=== PATIENT | female | born 1940 | race Caucasian/White ===

== ENCOUNTER 2018-05-03 14:34 | Inpatient (IN) ==
[2018-05-03] MEDS ORDERED: Sod Chloride 0.9% Inj 1,000 ML IV.SIG SCH (15:15)
--- NOTE | 2018-05-03 15:35 | ED ---
HPI General Chief Complaint: Altered Mental Status Stated Complaint: evaluate for confusion,mental status Time Seen by Provider: 05/03/18 15:02 Source: RN notes reviewed Mode of arrival: other (ambulance) Limitations: altered mental status History of Present Illness MD complaint: Reports altered mental status Onset (ago): unknown Severity: mild Consistency of symptoms: unknown Context: Reports other (dementia) Associated symptoms: Reports denies other symptoms Related Data Home Medications Medication Instructions Recorded Confirmed ascorbic acid (vitamin C) [Vitamin 500 mg PO DAILY 05/03/18 05/03/18 C] cholecalciferol (vitamin D3) 1,000 unit PO DAILY 05/03/18 05/03/18 [Vitamin D3] levothyroxine 25 mcg PO DAILY 05/03/18 05/03/18 lisinopril 10 mg PO HS 05/03/18 05/03/18 lorazepam [Ativan] 1 mg PO TID 05/03/18 05/03/18 omeprazole 20 mg PO QAM 05/03/18 05/03/18 simvastatin [Zocor] 20 mg PO QPM 05/03/18 05/03/18 Allergies Allergy/AdvReac Type Severity Reaction Status Date / Time No Known Allergies Allergy Verified 05/03/18 14:44 Review of Systems ROS Unobtainable ROS Unobtainable: unobtainable due to mental status PMFSH Medical History Medical History Anxiety (Acute) Dementia (Acute) Depression (Acute) GERD (gastroesophageal reflux disease) (Acute) Hyperlipidemia (Acute) Hypertension (Acute) Parkinson disease (Acute) Syncope (Acute) History of open sigmoidectomy (Acute) Surgical History Surgical History S/P colostomy takedown (Acute) Social History Social History Substance History: No History of Abuse Smoking Status: Unknown if ever smoked How Often Do You Have a Drink Containing Alcohol: Never Recent Travel in [facility] within the Last 8 Weeks: No Recent Out of Country Travel within the Last 8 Weeks: No Immunization History Tetanus Immunization: Unsure Exam Const General: cooperative, healthy appearing, well developed and other (crying) Orientation: alert and awake HENMT Head: normal to inspection, normocephalic and atraumatic Mouth: moist mucous membranes Eyes Alignment and Position: alignment normal and position abnormal Conjunctivae: conjunctivae normal Sclera: sclerae normal EOM: EOM intact bilaterally Neck Neck: normal visual inspection and full ROM Chest Chest: normal inspection of the chest Resp Effort & Inspection: normal respiratory effort and able to speak in complete sentences Auscultation: clear to auscultation bilaterally Cardio Rate: regular rate Rhythm: regular rhythm GI Inspection: normal to inspection Palpation: soft Back/Spine/Pelvis Cervical Spine: cervical ROM normal Thoracic/Lumbar Spine: thoraco-lumbar ROM normal Skin General: no rashes or lesions noted, turgor normal and dry skin Neuro General: alert, awake, moves all extremities and CN's II-XI intact bilaterally Extrem General: normal to inspection and full ROM Psych Appearance: grossly normal Mental Status: mental status grossly normal Speech and Movement: speech and movement normal Mood: congruent mood Affect: anxious affect Attitude: cooperative Course Initial Documented Vital Signs Temperature 98.9 F 05/03/18 14:38 Pulse Rate 97 H 05/03/18 14:38 Respiratory Rate 18 05/03/18 14:38 Blood Pressure 181/79 H 05/03/18 14:38 Pulse Oximetry 94 L 05/03/18 14:38 Last Documented Vital Signs Temperature 98.9 F 05/03/18 14:38 Pulse Rate 84 05/03/18 14:43 Respiratory Rate 20 05/03/18 14:43 Blood Pressure 177/82 H 05/03/18 14:43 Pulse Oximetry 96 05/03/18 14:43 Medical Decision Making MDM Narrative Medical decision making narrative: Patient with a history of dementia who presents to us for altered mental status. Triage note indicates that her caregivers are concerned about possible urinary tract infection. I will start by checking a urinalysis. She will be given a liter of fluid while awaiting the results of the urinalysis. 5:30 PM The patient has become very angry and is trying to leave. I have ordered Ativan , 1 mg IV. Unfortunately, her urinalysis does not show infection. I have subsequently ordered a more thorough workup. 8:40 PM The patient's medical workup is negative. She required an additional dose of Ativan IV along with Haldol 5 mg IM. The patient has paperwork with her from her assisted living facility. The paperwork reports that the patient has become increasingly confused and aggressive. She is no longer suitable for their facility. She was sent here for further evaluation, admission to the hospital and placement at a higher level of care. As she is medically clear, she is suitable for admission to psychiatry. I have placed an order for a psych screen. Medical Screen Exam Complete: Yes Emergency Medical Condition: Yes Differential Diagnosis Differential Diagnosis: Differential diagnosis of altered mental status includes but is not limited to infection, electrolyte abnormality, neurological event, intoxication, encephalitis, meningitis Medical Records Medical records reviewed: Yes I reviewed the patient's medical records. Lab Data Lab results reviewed: Yes I reviewed the patient's lab results. Result diagrams: 05/03/18 17:10 05/03/18 17:10 Lab Results 05/03/18 05/03/18 05/03/18 Range/Units 14:59 16:10 17:10 WBC 9.4 (4.0-11.0) th/mm3 RBC 4.04 (4.00-5.30) mil/mm3 Hgb 13.3 (11.6-15.3) gm/dL Hct 37.9 (35.0-46.0) % MCV 93.6 (80.0-100.0) fL MCH 32.9 (27.0-34.0) pg MCHC 35.1 (32.0-36.0) % RDW 13.5 (11.6-17.2) % Plt Count 176 (150-450) th/mm3 MPV 8.8 (7.0-11.0) fL Neut % (Auto) 71.6 H (16.0-70.0) % Lymph % (Auto) 16.9 (9.0-44.0) % Runnels % (Auto) 8.6 H (0.0-8.0) % Eos % (Auto) 1.9 (0.0-4.0) % Baso % (Auto) 1.0 (0.0-2.0) % Neut # (Auto) 6.7 (1.8-7.7) th/mm3 Lymph # (Auto) 1.6 (1.0-4.8) th/mm3 Runnels # (Auto) 0.8 (0.0-0.9) th/mm3 Eos # (Auto) 0.2 (0.0-0.4) th/mm3 Baso # (Auto) 0.1 (0.0-0.2) th/mm3 WBC Differential . Differential Comment Auto diff final Sodium (136-145) meq/L Potassium (3.5-5.1) meq/L Chloride (98-107) meq/L Carbon Dioxide (21.0-32.0) meq/L Anion Gap (5-15) meq/L BUN (7-18) mg/dL Creatinine (0.50-1.00) mg/dL Estimated GFR (>89) mL/min POC Glucose 124 H (68-110) mg/dl Random Glucose (74-106) mg/dL Calcium (8.5-10.1) mg/dL Magnesium (1.5-2.5) mg/dL Total Bilirubin (0.2-1.0) mg/dL AST (15-37) U/L ALT (10-53) U/L Alkaline Phosphatase (45-117) U/L Troponin I (0.02-0.05) ng/mL Total Protein (6.4-8.2) g/dL Albumin (3.4-5.0) g/dL Urine Color Eva (Yellw/Straw) Urine Clarity Clear (Clear) Urine pH 6.0 (5.0-8.5) Ur Specific [place] 1.019 (1.002-1.035) Urine Protein Negative (Neg-Trace) mg/dL Urine Glucose (UA) Negative (Negative) mg/dL Urine Ketones Trace H (Negative) mg/dL Urine Occult Blood Negative (Negative) Urine Nitrate Negative (Negative) Urine Bilirubin Negative (Negative) Urine Urobilinogen Less than 2 (Less than 2) mg/dL Ur Leukocyte Esterase Negative (Negative) Urine RBC 7 H (0-3) /hpf Urine WBC 2 (0-5) /hpf Ur Squamous Epith Cells <1 (0-5) /hpf Urine Mucus Few H (Occasional) /lpf Micro UA Comment Cath-culture not ind Ur Microscopic Review Not Reportable Urine Culture Comments Cath-cult not ind 05/03/18 Range/Units 17:10 WBC (4.0-11.0) th/mm3 RBC (4.00-5.30) mil/mm3 Hgb (11.6-15.3) gm/dL Hct (35.0-46.0) % MCV (80.0-100.0) fL MCH (27.0-34.0) pg MCHC (32.0-36.0) % RDW (11.6-17.2) % Plt Count (150-450) th/mm3 MPV (7.0-11.0) fL Neut % (Auto) (16.0-70.0) % Lymph % (Auto) (9.0-44.0) % Runnels % (Auto) (0.0-8.0) % Eos % (Auto) (0.0-4.0) % Baso % (Auto) (0.0-2.0) % Neut # (Auto) (1.8-7.7) th/mm3 Lymph # (Auto) (1.0-4.8) th/mm3 Runnels # (Auto) (0.0-0.9) th/mm3 Eos # (Auto) (0.0-0.4) th/mm3 Baso # (Auto) (0.0-0.2) th/mm3 WBC Differential Differential Comment Sodium 142 (136-145) meq/L Potassium 4.1 (3.5-5.1) meq/L Chloride 106 (98-107) meq/L Carbon Dioxide 29.3 (21.0-32.0) meq/L Anion Gap 7 (5-15) meq/L BUN 20 H (7-18) mg/dL Creatinine 1.07 H (0.50-1.00) mg/dL Estimated GFR 50 L (>89) mL/min POC Glucose (68-110) mg/dl Random Glucose 80 (74-106) mg/dL Calcium 9.2 (8.5-10.1) mg/dL Magnesium 2.1 (1.5-2.5) mg/dL Total Bilirubin 0.5 (0.2-1.0) mg/dL AST 20 (15-37) U/L ALT 9 L (10-53) U/L Alkaline Phosphatase 117 (45-117) U/L Troponin I Less than 0.02 L (0.02-0.05) ng/mL Total Protein 7.2 (6.4-8.2) g/dL Albumin 3.6 (3.4-5.0) g/dL Urine Color (Yellw/Straw) Urine Clarity (Clear) Urine pH (5.0-8.5) Ur Specific [place] (1.002-1.035) Urine Protein (Neg-Trace) mg/dL Urine Glucose (UA) (Negative) mg/dL Urine Ketones (Negative) mg/dL Urine Occult Blood (Negative) Urine Nitrate (Negative) Urine Bilirubin (Negative) Urine Urobilinogen (Less than 2) mg/dL Ur Leukocyte Esterase (Negative) Urine RBC (0-3) /hpf Urine WBC (0-5) /hpf Ur Squamous Epith Cells (0-5) /hpf Urine Mucus (Occasional) /lpf Micro UA Comment Ur Microscopic Review Urine Culture Comments Imaging Data Radiologist's impression: Head CT 05/03/18 17:37 CONCLUSION: 1. Negative noncontrast head CT. . ECG Data EKG Prior to Arrival: No Attestation: I personally reviewed and interpreted this ECG as follows: (EKG shows a sinus rhythm with a rate of 67. No STT wave changes.) Discharge Plan Discharge Disposition Patient Disposition: 30 Still Patient Discharge Details Diagnosis: Dementia with behavioral disturbance Physicians Team ED Provider: Estefani Cunningham Primary Care Provider: Nola Hernández Rxs /Orders / Referrals /Forms Prescriptions: No Action simvastatin [Zocor] 40 mg Tablet 20 mg PO QPM RF: 0 levothyroxine 25 mcg Tablet 25 mcg PO DAILY RF: 0 ascorbic acid (vitamin C) [Vitamin C] 500 mg Tablet 500 mg PO DAILY RF: 0 lisinopril 10 mg Tablet 10 mg PO HS RF: 0 omeprazole 20 mg Capsule,Delayed Release(Dr/Ec) 20 mg PO QAM RF: 0 lorazepam [Ativan] 1 mg Tablet 1 mg PO TID RF: 0 cholecalciferol (vitamin D3) [Vitamin D3] 1,000 unit Tablet 1,000 unit PO DAILY RF: 0 Status ED Status: Medically Cleared
[2018-05-03 17:05] LABS: Bilirubin,Urine Negative (Negative); Clarity,Urine Clear (Clear); Color,Urine Amber (Yellw/Straw); Glucose,Urine (UA) Negative (Negative); Leukocyte Esterase,Urine Negative (Negative); Mucus,Urine Few /lpf (Occasional); Nitrite,Urine Negative (Negative); Specific Gravity,Urine 1.019 (1.002-1.035); Squamous Epithelial Cell,Urine <1 /hpf (0-5)
[2018-05-03 18:06] LABS: Baso # (Auto) 0.1 th/mm3 (0.0-0.2); Eos # (Auto) 0.2 th/mm3 (0.0-0.4); Eos % (Auto) 1.9 % (0.0-4.0); Hematocrit 37.9 % (35.0-46.0); Hemoglobin 13.3 gm/dL (11.6-15.3); Lymph # (Auto) 1.6 th/mm3 (1.0-4.8); Lymph % (Auto) 16.9 % (9.0-44.0); Mean Corpuscular HGB Conc 35.1 % (32.0-36.0); Mean Corpuscular Hemoglobin 32.9 pg (27.0-34.0); Mean Corpuscular Volume 93.6 fL (80.0-100.0); Mean Platelet Volume 8.8 fL (7.0-11.0); Mono # (Auto) 0.8 th/mm3 (0.0-0.9); Mono % (Auto) 8.6 % (0.0-8.0); Neut # (Auto) 6.7 th/mm3 (1.8-7.7); Neut % (Auto) 71.6 % (16.0-70.0); Platelet Count 176 th/mm3 (150-450); Red Blood Count 4.04 mil/mm3 (4.00-5.30); Red Cell Distribution Width 13.5 % (11.6-17.2); White Blood Count 9.4 th/mm3 (4.0-11.0)
[2018-05-03 18:23] LABS: Anion Gap 7 meq/L (5-15)
[2018-05-03 18:26] LABS: Alanine Aminotransferase 9 U/L (10-53); Albumin 3.6 g/dL (3.4-5.0); Alkaline Phosphatase 117 U/L (45-117); Aspartate Aminotransferase 20 U/L (15-37); Blood Urea Nitrogen 20 mg/dL (7-18); Calcium 9.2 mg/dL (8.5-10.1); Carbon Dioxide 29.3 meq/L (21.0-32.0); Chloride 106 meq/L (98-107); Glomerular Filtration Rate 50 mL/min (>89); Glucose,Random 80 mg/dL (74-106); Magnesium 2.1 mg/dL (1.5-2.5); Sodium 142 meq/L (136-145); Total Protein 7.2 g/dL (6.4-8.2)
[2018-05-03 18:28] LABS: Potassium 4.1 meq/L (3.5-5.1)
[2018-05-03] MEDS ORDERED: Haloperidol Inj 5 MG/ML Ampul IM ONE (18:50)
--- NOTE | 2018-05-03 20:36 | CT ---
EXAM DATE: 05/03/2018 8:31 PM EDT AGE/SEX: 78 years / Female INDICATIONS: Altered mental status. CLINICAL DATA: This is the patient's initial encounter. Patient reports that signs and symptoms have been present for 1 day and indicates a pain score of Nonresponsive. MEDICAL/SURGICAL HISTORY: Dementia. Hypertension. Parkinson's disease. None. RADIATION DOSE: 56.35 CTDI (mGy) COMPARISON: No prior exams available for comparison. TECHNIQUE: CT of the head without contrast. Using automated exposure control and adjustment of the mA and/or kV according to patient size, radiation dose was kept as low as reasonably achievable to ob tain optimal diagnostic quality images. DICOM format image data is available electronically for revi ew and comparison. FINDINGS: Cerebrum: The ventricles are normal for age. No evidence of midline shift, mass lesion, hemorrhage or acute infarction. No extraaxial fluid collections are seen. Posterior Fossa: The cerebellum and brainstem are intact. The 4th ventricle is midline. The cerebe llopontine angle is unremarkable. Extracranial: The visualized portion of the orbits is intact. Skull: The calvaria is intact. No evidence of skull fracture. CONCLUSION: 1. Negative noncontrast head CT. . Electronically signed by: Sha Dawn MD 05/03/2018 8:35 PM EDT
[2018-05-03] MEDS ORDERED: Haloperidol Inj 5 MG/ML Ampul IM PRN (20:50)
[2018-05-04] MEDS ORDERED: Pantoprazole Sodium 20 MG DR Tablet PO SCH (09:00)
[2018-05-04] MEDS ORDERED: Lisinopril 10 MG Tablet PO SCH (09:00)
[2018-05-04] MEDS: Ascorbic Acid 500 MG Tablet PO SCH (10:19)
--- NOTE | 2018-05-04 12:43 | ED ---
HPI - Psych - General Source: family, RN notes reviewed, other Mode of arrival: other (ambulance) - History of Present Illness MD complaint: altered mental status Onset (ago): hour(s) Duration: constant History of same: Yes Relieving factors: none Context: significant life stressor Associated symptoms: confusion Treatments prior to arrival: physical restraints, chemical restraints - General Chief Complaint: Altered Mental Status Stated Complaint: evaluate for confusion,mental status Time Seen by Provider: 05/04/18 12:10 - History of Present Illness HPI Narrative: Patient is a 78-year-old , female with medical history of Parkinson's disease diagnosed 4 years ago, dementia with behaviors, depression, anxiety, who is sent for evaluation and possible admission as well as placement at a higher level of care from her [facility]. The paperwork reports that the patient has become increasingly confused and aggressive towards her , who is also a resident of the facility. The patient had a negative urinalysis and negative medical workup therefore she was medically cleared and a psychiatric evaluation has been ordered. The patient was somewhat agitated last night wanting to leave the hospital and was given Ativan 2 mg and Haldol 5 mg. Patient seen. She is awake with her eyes closed. She acknowledges me by opening her eyes when I call her name but then closes her eyes. She is nonverbal but does nod yes/no some of her answers. The patient is able to speak according to nurses report. The note from her primary care physician at [facility] dated April 28, 2018 is reviewed. It indicates that the patient was c taking Effexor 75 mg twice a day along with Ativan 0.5 mg 3 times a day. The Effexor was changed to Effexor 150 mg po q am. Telephone call to her sisterSonya at [phone]. States that the patient has one previous psychiatric admission in her fifties after her 21 year old daughter committed suicide. She has been agitated after her second returned to [facility] after a 3 month stay at a rehab facility. According to the sister, the patient told her that the has been antagonizing her and calling her " coockoo"., I attempted to engage patient again in evaluation at 1310. She is awake but refuses to answer any questions. I made another attempt at 1400. She ias awake but non verbal. She nods yes to feeling sad , but otherwise is non communicative. She stares at job specification writer and at times appears internally preoccupied. I have consulted Dr. Torres regarding case. We need to obtain further information in order to make a determination. At this time the patient would need to sign voluntary admission but we are unable to make that determination if she does not cooperate with evaluation. Telephone call to [facility] at [phone] ext [phone] to speak with nursing assistants teacher Monica. She tells me that the patient has been having episodes of outbursts followed by episodes of not speaking at all. They are concerned over her continued episodes of agitated behavior. The [facility] is willing to take her back if her behavior improves. (Radha Dixon) - Related Data Home Medications Medication Instructions Recorded Confirmed ascorbic acid (vitamin C) [Vitamin 500 mg PO DAILY 05/03/18 05/03/18 C] cholecalciferol (vitamin D3) 1,000 unit PO DAILY 05/03/18 05/03/18 [Vitamin D3] levothyroxine 25 mcg PO DAILY 05/03/18 05/03/18 lisinopril 10 mg PO HS 05/03/18 05/03/18 lorazepam [Ativan] 1 mg PO TID 05/03/18 05/03/18 omeprazole 20 mg PO QAM 05/03/18 05/03/18 simvastatin [Zocor] 20 mg PO QPM 05/03/18 05/03/18 Allergies Allergy/AdvReac Type Severity Reaction Status Date / Time No Known Allergies Allergy Verified 05/03/18 14:44 [facility] - History History Provided By: Patient - Medical History Medical History: Medical History (Last Updated 05/03/18 @ 15:38 by Estefani Cunningham) Anxiety Dementia Depression GERD (gastroesophageal reflux disease) Hyperlipidemia Hypertension Parkinson disease Syncope History of open sigmoidectomy - Surgical History Surgical History: Surgical History (Last Reviewed 05/03/18 @ 15:38 by Estefani Cunningham) S/P colostomy takedown - Tobacco History Smoking Status: Unknown if ever smoked - Alcohol History How Often Do You Have a Drink Containing Alcohol: Never - Substance Use History Substance History: No History of Abuse - Travel History Recent Travel in the [facility] Within the Last 8 Weeks: No Recent Travel Out of the Country Within the Last 8 Weeks: No - Immunization History Tetanus Immunization: Unsure Psychiatric History - Psychiatric History Psychiatric Treatment History: History of Psychiatric Treatment History of Inpatient Treatment: Yes Firearms in Home: No - Psychiatric History 1 previous admission when patient was in her 50s. (Radha Dixon) Physical Exam - General Limitations: altered mental status Mental Status Examination Appearance: Disheveled Consciousness: Alert, Asleep, Somnolent Orientation: Person Motor Activity: Other Speech: Other Language: Other (Nonverbal at this time) Attention and Concentration: Inadequate Memory: Impaired (Unable to formally test) Mood: Other (Unable to evaluate) Affect: Sad, Flat Thought Process & Associations: Other (Unable to evaluate) Thought Content: Other (Unable to evaluate) Hallucination Type: Other (Unable to evaluate) Delusion Type: Other Insight: Poor Judgment: Poor Initial Documented Vital Signs Temperature 98.9 F 05/03/18 14:38 Pulse Rate 97 H 05/03/18 14:38 Respiratory Rate 18 05/03/18 14:38 Blood Pressure 181/79 H 05/03/18 14:38 Pulse Oximetry 94 L 05/03/18 14:38 Last Documented Vital Signs Temperature 98.9 F 05/03/18 14:38 Pulse Rate 78 05/04/18 07:44 Respiratory Rate 18 05/04/18 07:44 Blood Pressure 176/89 H 05/04/18 07:44 Pulse Oximetry 98 05/04/18 07:44 MDM - Psych - Diagnosis (1) Dementia with behavioral disturbance Status: Acute (2) Depressive disorder Status: Acute - Lab Data Result diagrams: 05/03/18 17:10 05/03/18 17:10 - MDM Narrative Medical decision making narrative: I have discussed case with Dr. Fabio Torres. The patient will be admitted to inpatient psychiatry 2500 unit for further observation, evaluation, possible medication adjustment. HEPAS consult has been ordered. (Radha Dixon) - Lab Data Lab Results 05/03/18 05/03/18 05/03/18 Range/Units 14:59 16:10 17:10 WBC 9.4 (4.0-11.0) th/mm3 RBC 4.04 (4.00-5.30) mil/mm3 Hgb 13.3 (11.6-15.3) gm/dL Hct 37.9 (35.0-46.0) % MCV 93.6 (80.0-100.0) fL MCH 32.9 (27.0-34.0) pg MCHC 35.1 (32.0-36.0) % RDW 13.5 (11.6-17.2) % Plt Count 176 (150-450) th/mm3 MPV 8.8 (7.0-11.0) fL Neut % (Auto) 71.6 H (16.0-70.0) % Lymph % (Auto) 16.9 (9.0-44.0) % [place] % (Auto) 8.6 H (0.0-8.0) % Eos % (Auto) 1.9 (0.0-4.0) % Baso % (Auto) 1.0 (0.0-2.0) % Neut # (Auto) 6.7 (1.8-7.7) th/mm3 Lymph # (Auto) 1.6 (1.0-4.8) th/mm3 [place] # (Auto) 0.8 (0.0-0.9) th/mm3 Eos # (Auto) 0.2 (0.0-0.4) th/mm3 Baso # (Auto) 0.1 (0.0-0.2) th/mm3 WBC Differential . Differential Comment Auto diff final Sodium (136-145) meq/L Potassium (3.5-5.1) meq/L Chloride (98-107) meq/L Carbon Dioxide (21.0-32.0) meq/L Anion Gap (5-15) meq/L BUN (7-18) mg/dL Creatinine (0.50-1.00) mg/dL Estimated GFR (>89) mL/min POC Glucose 124 H (68-110) mg/dl Random Glucose (74-106) mg/dL Calcium (8.5-10.1) mg/dL Magnesium (1.5-2.5) mg/dL Total Bilirubin (0.2-1.0) mg/dL AST (15-37) U/L ALT (10-53) U/L Alkaline Phosphatase (45-117) U/L Troponin I (0.02-0.05) ng/mL Total Protein (6.4-8.2) g/dL Albumin (3.4-5.0) g/dL TSH (0.358-3.740) uIU/mL Urine Color Eva (Yellw/Straw) Urine Clarity Clear (Clear) Urine pH 6.0 (5.0-8.5) Ur Specific [place] 1.019 (1.002-1.035) Urine Protein Negative (Neg-Trace) mg/dL Urine Glucose (UA) Negative (Negative) mg/dL Urine Ketones Trace H (Negative) mg/dL Urine Occult Blood Negative (Negative) Urine Nitrate Negative (Negative) Urine Bilirubin Negative (Negative) Urine Urobilinogen Less than 2 (Less than 2) mg/dL Ur Leukocyte Esterase Negative (Negative) Urine RBC 7 H (0-3) /hpf Urine WBC 2 (0-5) /hpf Ur Squamous Epith Cells <1 (0-5) /hpf Urine Mucus Few H (Occasional) /lpf Micro UA Comment Cath-culture not ind Ur Microscopic Review Not Reportable Urine Culture Comments Cath-cult not ind 05/03/18 05/03/18 Range/Units 17:10 17:10 WBC (4.0-11.0) th/mm3 RBC (4.00-5.30) mil/mm3 Hgb (11.6-15.3) gm/dL Hct (35.0-46.0) % MCV (80.0-100.0) fL MCH (27.0-34.0) pg MCHC (32.0-36.0) % RDW (11.6-17.2) % Plt Count (150-450) th/mm3 MPV (7.0-11.0) fL Neut % (Auto) (16.0-70.0) % Lymph % (Auto) (9.0-44.0) % [place] % (Auto) (0.0-8.0) % Eos % (Auto) (0.0-4.0) % Baso % (Auto) (0.0-2.0) % Neut # (Auto) (1.8-7.7) th/mm3 Lymph # (Auto) (1.0-4.8) th/mm3 [place] # (Auto) (0.0-0.9) th/mm3 Eos # (Auto) (0.0-0.4) th/mm3 Baso # (Auto) (0.0-0.2) th/mm3 WBC Differential Differential Comment Sodium 142 (136-145) meq/L Potassium 4.1 (3.5-5.1) meq/L Chloride 106 (98-107) meq/L Carbon Dioxide 29.3 (21.0-32.0) meq/L Anion Gap 7 (5-15) meq/L BUN 20 H (7-18) mg/dL Creatinine 1.07 H (0.50-1.00) mg/dL Estimated GFR 50 L (>89) mL/min POC Glucose (68-110) mg/dl Random Glucose 80 (74-106) mg/dL Calcium 9.2 (8.5-10.1) mg/dL Magnesium 2.1 (1.5-2.5) mg/dL Total Bilirubin 0.5 (0.2-1.0) mg/dL AST 20 (15-37) U/L ALT 9 L (10-53) U/L Alkaline Phosphatase 117 (45-117) U/L Troponin I Less than 0.02 L (0.02-0.05) ng/mL Total Protein 7.2 (6.4-8.2) g/dL Albumin 3.6 (3.4-5.0) g/dL TSH 1.270 (0.358-3.740) uIU/mL Urine Color (Yellw/Straw) Urine Clarity (Clear) Urine pH (5.0-8.5) Ur Specific Brooks (1.002-1.035) Urine Protein (Neg-Trace) mg/dL Urine Glucose (UA) (Negative) mg/dL Urine Ketones (Negative) mg/dL Urine Occult Blood (Negative) Urine Nitrate (Negative) Urine Bilirubin (Negative) Urine Urobilinogen (Less than 2) mg/dL Ur Leukocyte Esterase (Negative) Urine RBC (0-3) /hpf Urine WBC (0-5) /hpf Ur Squamous Epith Cells (0-5) /hpf Urine Mucus (Occasional) /lpf Micro UA Comment Ur Microscopic Review Urine Culture Comments
[2018-05-04] MEDS ORDERED: Aluminum/Magnesium/Simethacone Susp 30 ML UDC PO PRN (15:13)
--- NOTE | 2018-05-04 16:25 | P.CON ---
History of Present Illness Reason for Consult: Medical management Primary Care Provider: Nola Hernández MD Chief Complaint: Medical management History of Present Illness: 78-year-old female with a past medical history of dementia with behavioral disturbances, Parkinson disease was brought from [facility] facility and admitted to psychiatry service secondary to increasing confusion and aggression toward others.[facility] was consulted for medical management. Patient is only alert to self and able to provide any history during my exam. BP elevated. . Review of Systems unobtainable due to mental condition, unobtainable due to mental status PMFSH - History History Provided By: Patient - Medical History Medical History: Medical History (Last Updated 05/03/18 @ 15:38 by Estefani Cunningham) Anxiety Dementia Depression GERD (gastroesophageal reflux disease) Hyperlipidemia Hypertension Parkinson disease Syncope History of open sigmoidectomy - Surgical History Surgical History: Surgical History (Last Reviewed 05/03/18 @ 15:38 by Estefani Cunningham) S/P colostomy takedown - Tobacco History Smoking Status: Unknown if ever smoked - Alcohol History How Often Do You Have a Drink Containing Alcohol: Never - Substance Use History Substance History: No History of Abuse - Travel History Recent Travel in the [place] Within the Last 8 Weeks: No Recent Travel Out of the Country Within the Last 8 Weeks: No - Immunization History Tetanus Immunization: Unsure Medications and Allergies Active Medications: Active Medications Al Hydrox/Mg Hydrox/Simethicone (Mag-Al Plus Susp Liq) 30 ml PO Q6H PRN PRN Reason: DYSPEPSIA Al Hydroxide/Mg Hydroxide (Milk Of Magnesia Liq) 30 ml PO Q12H PRN PRN Reason: Mild Constipation Ascorbic Acid (Vitamin C) 500 mg PO DAILY [facility] Last Admin: 05/04/18 10:19 Dose: Not Given Haloperidol Lactate (Haldol Inj) 5 mg IM Q6H PRN PRN Reason: AGITATION Lactulose (Lactulose Liq) 30 ml PO DAILY PRN PRN Reason: SEVERE CONSITIPATION Levothyroxine Sodium (Synthroid) 25 mcg PO DAILY@0600 [facility] Last Admin: 05/04/18 09:13 Dose: Not Given Levothyroxine Sodium (Synthroid) 25 mcg PO DAILY [facility] Lisinopril (Prinivil) 10 mg PO DAILY [facility] Lorazepam (Ativan Inj) 2 mg IM Q6H PRN PRN Reason: AGITATION Lorazepam (Ativan Inj) 0.5 mg IM Q12H PRN PRN Reason: MODERATE TO SEVERE ANXIETY Non-Formulary Medication (Simvastatin [Zocor]) 20 mg PO QPM [facility] Pantoprazole Sodium (Protonix) 20 mg PO DAILY [facility] Last Admin: 05/04/18 10:18 Dose: Not Given Sennosides (Senokot) 17.2 mg PO Q12H PRN PRN Reason: Moderate Constipation Vitamin D (Vitamin D3) 1,000 unit PO DAILY [facility] Last Admin: 05/04/18 10:19 Dose: Not Given Vitamin D (Vitamin D3) 1,000 unit PO DAILY [facility] Allergies Allergy/AdvReac Type Severity Reaction Status Date / Time No Known Allergies Allergy Verified 05/03/18 14:44 Home Medications Medication Instructions Recorded Confirmed Type ascorbic acid (vitamin C) [Vitamin 500 mg PO DAILY 05/03/18 05/03/18 History C] cholecalciferol (vitamin D3) 1,000 unit PO DAILY 05/03/18 05/03/18 History [Vitamin D3] levothyroxine 25 mcg PO DAILY 05/03/18 05/03/18 History lisinopril 10 mg PO HS 05/03/18 05/03/18 History lorazepam [Ativan] 1 mg PO TID 05/03/18 05/03/18 History omeprazole 20 mg PO QAM 05/03/18 05/03/18 History simvastatin [Zocor] 20 mg PO QPM 05/03/18 05/03/18 History Physical Exam Vital signs: Vital Signs 05/03/18 22:55 05/04/18 06:45 05/04/18 07:07 Pulse Rate 69 78 89 Respiratory Rate 16 18 18 Blood Pressure 165/71 H 189/87 H 190/87 H Pulse Oximetry 96 98 99 05/04/18 07:44 05/04/18 15:00 Pulse Rate 78 87 Respiratory Rate 18 18 Blood Pressure 176/89 H 197/87 H Pulse Oximetry 98 Intake & Output 05/03/18 05/04/18 05/04/18 18:59 06:59 18:59 Intake Total 1000 / 1000 Balance 1000 / 1000 Weight 66.678 kg Intake: IV 1000 / 1000 NS Inj 1,000 ML @ 1000 mls/hr 1000 / 1000 IV.SIG BOLUS [facility], [facility]1983 Rx#:[id number] Narrative: GENERAL: NAD SKIN: Warm and dry. HEAD: Atraumatic. Normocephalic. EYES: Pupils equal and round. No scleral icterus. No injection or drainage. ENT: No nasal bleeding or discharge. Mucous membranes pink and moist. NECK: Trachea midline. No JVD. CARDIOVASCULAR: Regular rate and rhythm. RESPIRATORY: No accessory muscle use. Clear to auscultation. Breath sounds equal bilaterally. GASTROINTESTINAL: Abdomen soft, non-tender, nondistended. Hepatic and splenic margins not palpable. MUSCULOSKELETAL: Extremities without clubbing, cyanosis, or edema. No obvious deformities. NEUROLOGICAL: Awake and alert. No obvious cranial nerve deficits. Motor grossly within normal limits. Five out of 5 muscle strength in the arms and legs. PSYCHIATRIC: inappropriate mood and affect; insight and judgment poor. Assessment and Plan - Plan 78-year-old female with Behavior disturbances Dementia Acute mood disorder Management per psychiatry Labile benign hypertension Resume lisinopril Start clonidine 0.2mg TTS q. 7D Other chronic medical conditions Continue with outpatient medications Thank you for this consultation
--- NOTE | 2018-05-04 16:35 | ECG ---
Date Performed: 05/03/2018 Time Performed: 20:45:03 PTAGE: 78 years EKG: Sinus rhythm NORMAL ECG PREVIOUS TRACING 09/11/13 @ 11.02 Since the previous tracing, no significant change noted DOCTOR: Rajesh Lockhart Interpretating Date/Time 05/04/2018 16:33:18
[2018-05-04] MEDS: Pantoprazole Sodium 20 MG DR Tablet PO SCH (17:14)
[2018-05-04] MEDS: Lisinopril 10 MG Tablet PO SCH (21:17)
[2018-05-05] MEDS: Lisinopril 10 MG Tablet PO SCH ×3 (01:27→22:38)
[2018-05-05] MEDS: Pantoprazole Sodium 20 MG DR Tablet PO SCH (08:28)
[2018-05-05] MEDS: Ascorbic Acid 500 MG Tablet PO SCH (08:29)
[2018-05-05 08:40] LABS: Carbon Dioxide 27.6 meq/L (21.0-32.0); Potassium 3.6 meq/L (3.5-5.1)
[2018-05-05 09:04] LABS: Chol/HDL Ratio 2.59 Ratio; HDL Cholesterol 60.5 mg/dL (40.0-60.0)
[2018-05-05 11:04] LABS: Hemoglobin A1c 4.9 % (4.3-6.0)
--- NOTE | 2018-05-05 11:11 | P.HPPSY ---
Provisional Diagnosis Admission Date: May 04, 2018 15:12 [place] I.: 1. Dementia with behavioral disturbance Neurodegenerative (Alzheimer type versus Parkinson's disease dementia) [place] II.: Deferred Competence Certification of Person's Competence To Provide Express and Informed Consent I have personally examined Daksha Barnes, a person being served at [facility] on, May 05, 2018 1111. Express and informed consent means consent voluntarily given in writing, by a competent person, after sufficient explanation and disclosure of the subject matter involved to enable the person to make a knowing and willful decision without any element of force, fraud, deceit, duress, or other form of constraint or coercion. This person is 18 years of age or older, is not now known to be incompetent to consent to treatment with a guardian advocate, and does not have a health care surrogate or proxy currently making medical treatment decisions. I have found this person to be one of the following: [] Competent to provide express and informed consent, as defined above, for voluntary admission to this facility and is competent to provide express and informed consent for treatment. He/she has the consistent capacity to make well reasoned, willful, and knowing decisions concerning his or her medical or mental health treatment. The person fully and consistently understands the purpose of the admission for examination/placement and is fully capable of personally exercising all rights assured [place] [X] Incompetent to provide express and informed consent to voluntary admission, and this is incompetent to provide express and informed consent to treatment. The person must be transferred to involuntary status and a petition for a guardian advocate filed with the Circuit Court. [] Refusing to provide express and informed consent to voluntary admission but is competent to provide express and informed consent for treatment. The person must be discharged or transferred to involuntary status. Form shall be completed within 24 hours of a person's arrival at the receiving facility and filed in the clinical record of each person: 1. Admitted on a voluntary basis 2. Permitted to provide express and informed consent to his/her own treatment 3. Allowed to transfer from involuntary to voluntary status 4. Prior to permitting a person to consent to his or her own treatment after having been previously found incompetent to consent to treatment. History of Present Illness Capacity: Lacks capacity Chief Complaint: Roesn Act History of Present Illness: Ms. Barnes is a 78 year-old female with a history of dementia who was brought to the ED from her facility for alleged aggressive behavior there. Patient was evaluated by psychiatric nurse practitioner in the ED and Rosen Acted. Reviewing the electronic medical record, I see no previous psychiatric contact within our system. Patient seen and examined with nurse. Chart reviewed. I note progress note from patient's PCP on the chart, which I have reviewed. Case discussed with nursing staff. No behavioral issues noted overnight. On my examination today, patient presents as calm and cooperative if somewhat confused. She is unable to complete the visual-spatial or naming components of the MOCA secondary to not having her eyeglasses (nurse is trying to locate these), but her score on the remainder of the exam was 6/22. She has no idea why she has been brought into the hospital. She does say that she has occasional "tiffs," by which she means verbal disputes, with the staff at her facility, she says. She does admit to feeling somewhat depressed for the last 2-3 weeks. She denies any suicidal ideation or passive thoughts of . No hypomanic or manic symptoms. She denies any audiovisual hallucinations. I can elicit no delusional material. She does report some subjective memory issues. Remainder of the psychiatric ROS is negative. No acute physical complaints. Past psychiatric history: Patient is likely an unreliable historian. She reports a history of depression and says that she has seen psychiatrists in the past. She says that her Effexor does help with her mood. She denies any history of psychiatric admissions. She denies any history of suicide attempts. ASSISTANT PRODUCER note indicates that the patient may have a history of previous psychiatric hospitalization following daughter's suicide. Family history: Patient reports that there is "some" family history of mental illness, she cannot say what. Chemical dependency history: The patient reports that she drinks a glass of white wine with dinner. She does report a history of heavier drinking. Social history: The patient reports that she has resided in her current assisted living setting for 3 weeks. She is with a son. She is high school educated. 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 She denies any history. Denies any legal history. Denies any particular yazdanism or spiritual beliefs. Denies any history of trauma. Given patient's degree of cognitive impairment and need for healthcare surrogate , I reached out to the patient's sister Sonya Kasper at [phone]. Ms. Kasper is willing to serve as HCS, noting she is patient's POA. We discuss the risks and benefits of ongoing psychiatric hospitalization in this patient, including the potential risks of fall, infection and other misadventure. Ms. Kasper supports hospitalization only if facility will not accept patient back. Counselor has checked, and facility insists on coming out Tuesday to assess whether patient may return, and so patient would presently need to remain in the hospital. I have obtained consent for psychotropic medications from Ms. Kasper. We discuss adding Seroquel to patient's Effexor for management of behaviors in setting of dementia. We also discuss discontinuing patient's Ativan as Ms. Kasper notes that this is disinhibiting for patient once initial sedating effects wear off. We review the R/B/A for medications with particular focus on the motor and metabolic side effects of Seroquel. We also discuss the FDA black box warning regarding increased risk of in demented elderly with antipsychotic therapy. Finally, we review patient's involuntary legal status. - Inpatient Certification I certify that the inpatient services were ordered in accordance with Medicare regulations governing the order. This includes certification that hospital inpatient services are reasonable and necessary and in the case of services not specified as inpatient-only under 42 CFR 419.22(n), that they are appropriately provided as inpatient services in accordance to with the 2-midnight benchmark under 43 CFR 412.3(e) I certify that inpatient psychiatric hospital services are medically necessary. Evaluation and treatment and/or diagnostic testing are expected to improve the patient's condition. The patient needs on a daily basis, active treatment furnished directly by or requiring the supervision of inpatient psychiatric facility personnel. Estimated Total Length of Stay (Days): 5 (3-5) Plans for Post Hospital Care: Other (Return to facility) Review of Systems All other systems reviewed negative except as stated in HPI (Limitation: Poor historian) PMFSH - History History Provided By: Patient - Medical History Medical History: Medical History (Last Updated 05/03/18 @ 15:38 by Estefani Cunningham) Anxiety Dementia Depression GERD (gastroesophageal reflux disease) Hyperlipidemia Hypertension Parkinson disease Syncope History of open sigmoidectomy - Surgical History Surgical History: Surgical History (Last Reviewed 05/03/18 @ 15:38 by Estefani Doan S/P colostomy takedown - Tobacco History Second Hand Smoke Exposure: No Smoking Status: Never smoker - Alcohol History How Often Do You Have a Drink Containing Alcohol: 4 or more times a week - Substance Use History Substance History: No History of Abuse - Travel History Recent Travel in the [place] Within the Last 8 Weeks: No Recent Travel Out of the Country Within the Last 8 Weeks: No - Immunization History Tetanus Immunization: Unsure Quality Measures - Patient Strengths Patient's strengths (minimum of 2): In a monitored setting. Verbally fluent. Medications and Allergies Active Medications: Active Medications Al Hydrox/Mg Hydrox/Simethicone (Mag-Al Plus Susp Liq) 30 ml PO Q6H PRN PRN Reason: DYSPEPSIA Al Hydroxide/Mg Hydroxide (Milk Of Magnesia Liq) 30 ml PO Q12H PRN PRN Reason: Mild Constipation Ascorbic Acid (Vitamin C) 500 mg PO DAILY [facility] Last Admin: 05/05/18 08:29 Dose: 500 mg Clonidine HCl (Catapress-Tts 0.2 Mg Patch.7d) 1 patch T-DERMAL Q7D [facility] Last Admin: 05/04/18 17:14 Dose: 1 patch Haloperidol Lactate (Haldol Inj) 5 mg IM Q6H PRN PRN Reason: AGITATION Lactulose (Lactulose Liq) 30 ml PO DAILY PRN PRN Reason: SEVERE CONSITIPATION Levothyroxine Sodium (Synthroid) 25 mcg PO DAILY [facility] Last Admin: 05/05/18 08:29 Dose: 25 mcg Lisinopril (Prinivil) 10 mg PO HS [facility] Last Admin: 05/05/18 01:27 Dose: 10 mg Lorazepam (Ativan Inj) 2 mg IM Q6H PRN PRN Reason: AGITATION Lorazepam (Ativan Inj) 0.5 mg IM Q12H PRN PRN Reason: MODERATE TO SEVERE ANXIETY Pantoprazole Sodium (Protonix) 20 mg PO DAILY [facility] Last Admin: 05/05/18 08:28 Dose: 20 mg Patch Removal (Remove Old Patch) 1 each T-DERMAL Q7D [facility] Pravastatin Sodium (Pravachol) 40 mg PO DAILY@1800 [facility] Last Admin: 05/04/18 21:17 Dose: Not Given Sennosides (Senokot) 17.2 mg PO Q12H PRN PRN Reason: Moderate Constipation Vitamin D (Vitamin D3) 1,000 unit PO DAILY [facility] Last Admin: 05/05/18 08:29 Dose: 1,000 unit Allergies Allergy/AdvReac Type Severity Reaction Status Date / Time No Known Allergies Allergy Verified 05/03/18 14:44 Home Medications Medication Instructions Recorded Confirmed Type ascorbic acid (vitamin C) [Vitamin 500 mg PO DAILY 05/03/18 05/03/18 History C] cholecalciferol (vitamin D3) 1,000 unit PO DAILY 05/03/18 05/03/18 History [Vitamin D3] levothyroxine 25 mcg PO DAILY 05/03/18 05/03/18 History lisinopril 10 mg PO HS 05/03/18 05/03/18 History lorazepam [Ativan] 1 mg PO TID 05/03/18 05/03/18 History omeprazole 20 mg PO QAM 05/03/18 05/03/18 History simvastatin [Zocor] 20 mg PO QPM 05/03/18 05/03/18 History Results - Labs CBC & Chem 7: 05/03/18 17:10 05/05/18 07:36 Labs: Laboratory Results - last 24 hr 05/05/18 07:36 Sodium 142 Potassium 3.6 Chloride 106 Carbon Dioxide 27.6 Anion Gap 8 BUN 13 Creatinine 0.93 Estimated GFR 58 L Random Glucose 96 Calcium 9.0 Triglycerides 118 Cholesterol 157 LDL Cholesterol, Calc 73 HDL Cholesterol 60.5 H Cholesterol/HDL Ratio 2.59 Vitamin B12 490 Labs reviewed. CBC unremarkable. CMP reveals mildly decreased GFR. Urinalysis plan. EKG read as normal sinus rhythm with a QTC of 389 ms, not prolonged. Impressions Head CT 05/03/18 17:37 CONCLUSION: 1. Negative noncontrast head CT. Exam Vital signs: Vital Signs 05/04/18 15:00 05/04/18 17:56 05/05/18 01:20 Temperature 98.2 F Pulse Rate 87 93 H 80 Respiratory Rate 18 18 20 Blood Pressure 197/87 H 150/70 H 170/84 H Pulse Oximetry 95 05/05/18 06:00 Temperature 98.3 F Pulse Rate 84 Respiratory Rate 18 Blood Pressure 123/65 Pulse Oximetry 94 L Intake & Output 05/04/18 05/05/18 05/05/18 18:59 06:59 18:59 Weight 78.1 kg Narrative: Physical exam completed by hospitalist cruise consultant. On my examination today, the patient appears to be in no acute physical distress. Somewhat bradykinetic. No dyskinesias noted. No other motor abnormalities noted. Labs and vital signs reviewed. Mental Status Examination Appearance: Disheveled Consciousness: Alert Orientation: Person, Date/Time (Knows the year and day of week) Motor Activity: Other (In Gwendolyn chair) Speech: Unremarkable Language: Adequate Fund of Knowledge: Inadequate Attention and Concentration: Other (Fair) Memory: Impaired Mood: Other (Somewhat depressed) Affect: Blunt Thought Process & Associations: Circumstantial Thought Content: Other (Some poverty of thought) Hallucination Type: None Delusion Type: None Suicidal Ideation: No Suicidal Plan: No Suicidal Intention: No Homicidal Ideation: No Homicidal Plan: No Homicidal Intention: No Insight: Poor Judgment: Poor Assessment and Plan - Assessment (1) Dementia with behavioral disturbance Code(s): F03.91 - Unspecified dementia with behavioral disturbance Status: Acute - Plan Plan: 78-year-old female with psychiatric history as detailed above who is presently admitted to the geropsychiatric unit under a Rosen act. On my examination today , the patient is calm and cooperative but fairly confused. Counselor has clarified allegations of aggressive behavior at facility, and I have reviewed these with the counselor. Facility will be out after the weekend to evaluate the patient. I will plan to retain the patient over the weekend for observation and medication adjustment. Admit inpatient. Involuntary status. I have completed first opinion. Consult for second opinion. Request healthcare surrogate and guardian advocate. Start Seroquel 25 mg twice daily for behavioral disturbance in the setting of dementia. Continue Effexor XR 150 mg total daily dose. Hospitalist input noted and appreciated. Resume patient's antiparkinsonian agents. Request physical therapy evaluation. Vitals every shift. Monitor for signs of GABAergic withdrawal. Counselor to see. Disposition planning. Estimated length of stay: 3-5 days. Justification for Continued Inpatient Stay: See above Discharge Planning: Pending psychiatric stabilization Request Healthcare Surrogate/Guardian Advocate?: Yes (1) Dementia with behavioral disturbance Qualifiers: Dementia type: unspecified type Qualified Code(s): F03.91 - Unspecified dementia with behavioral disturbance
--- NOTE | 2018-05-05 13:06 | P.PN ---
Subjective Interval history: Follow-up visit for hypertension. Patient seen and examined in the day room sitting up in geriatric chair appears to be in no acute distress. Spoke with nurse reports no acute events overnight or this morning, blood pressure has been stable. Patient is alert and oriented to self only. She denies any pain or discomfort, is asking to get out of the chair. Physical Exam Vital signs: Vital Signs 05/04/18 15:00 05/04/18 17:56 05/05/18 01:20 Temperature 98.2 F Pulse Rate 87 93 H 80 Respiratory Rate 18 18 20 Blood Pressure 197/87 H 150/70 H 170/84 H Pulse Oximetry 95 05/05/18 06:00 Temperature 98.3 F Pulse Rate 84 Respiratory Rate 18 Blood Pressure 123/65 Pulse Oximetry 94 L Intake & Output 05/04/18 05/05/18 05/05/18 18:59 06:59 18:59 Weight 78.1 kg Narrative: GENERAL: Well-developed, well-nourished elderly female in no acute distress. SKIN: Warm and dry. HEAD: Atraumatic. EYES: Pupils equal and round. No scleral icterus. No injection or drainage. ENT: No nasal bleeding or discharge. Mucous membranes pink and moist. NECK: Trachea midline. CARDIOVASCULAR: Regular rate and rhythm. RESPIRATORY: No accessory muscle use. Clear to auscultation. Breath sounds equal bilaterally. GASTROINTESTINAL: Abdomen soft, non-tender, nondistended. Positive bowel sounds MUSCULOSKELETAL: Extremities without clubbing, cyanosis, or edema. No obvious deformities. NEUROLOGICAL: Awake and alert. No obvious cranial nerve deficits. Motor grossly within normal limits. Clear speech. PSYCHIATRIC: inappropriate mood and affect; insight and judgment poor. Results - Labs CBC & Chem 7: 05/03/18 17:10 05/05/18 07:36 Laboratory Results - last 24 hr 05/05/18 05/05/18 07:36 07:36 Sodium 142 Potassium 3.6 Chloride 106 Carbon Dioxide 27.6 Anion Gap 8 BUN 13 Creatinine 0.93 Estimated GFR 58 L Random Glucose 96 Hemoglobin A1c 4.9 Calcium 9.0 Triglycerides 118 Cholesterol 157 LDL Cholesterol, Calc 73 HDL Cholesterol 60.5 H Cholesterol/HDL Ratio 2.59 Vitamin B12 490 Assessment and Plan - Plan 78-year-old female with Behavior disturbances Dementia Acute mood disorder Management per psychiatry Hypertension, improved -Patient currently on lisinopril, newly started clonidine patch -Recheck BMP stable -Blood pressures stable, continue current regimen. GERD, stable Hyperlipidemia, stable Thyroidism, stable -Continue statin, Synthroid and Protonix for chronic medical problems. [facility] will sign off, please reconsult if needed. Discussed Condition With: Patient and RN.
[2018-05-05] MEDS ORDERED: ENTACAPONE 200 MG PO SCH (18:00)
--- NOTE | 2018-05-05 19:07 | ECG ---
Date Performed: 05/05/2018 Time Performed: 11:15:46 PTAGE: 78 years EKG: Sinus rhythm Since the previous tracing, no significant change noted NORMAL ECG PREVIOUS TRACING : 05/03/2018 20.45 DOCTOR: Francis Zamora Interpretating Date/Time 05/05/2018 19:07:01
[2018-05-05] MEDS: QUEtiapine 25 MG Tablet PO SCH ×2 (22:00→22:38)
--- NOTE | 2018-05-06 04:08 | XR ---
EXAM DATE: 05/06/2018 3:57 AM EDT AGE/SEX: 78 years / Female INDICATIONS: Trauma due to fall. CLINICAL DATA: This is the patient's initial encounter. Patient reports that signs and symptoms have been present for 1 day and indicates a pain score of Nonresponsive. MEDICAL/SURGICAL HISTORY: . Dementia. Hypertension. Parkinson's disease None. COMPARISON: No prior exams available for comparison. FINDINGS: Mild degenerative change. No evidence of fracture, dislocation or joint effusion. Mineralization is n ormal. CONCLUSION: Mild arthritic changes. No acute bony injury. Electronically signed by: Gt Thomas MD 05/06/2018 4:07 AM EDT
--- NOTE | 2018-05-06 04:09 | XR ---
EXAM DATE: 05/06/2018 3:56 AM EDT AGE/SEX: 78 years / Female INDICATIONS: Trauma due to fall. CLINICAL DATA: This is the patient's initial encounter. Patient reports that signs and symptoms have been present for 1 day and indicates a pain score of Nonresponsive. MEDICAL/SURGICAL HISTORY: . Dementia. Hypertension. Parkinson's disease None. COMPARISON: No prior exams available for comparison. FINDINGS: Mild arthritic change with marginal osteophytes most prominent in the medial compartment. No evidence of joint effusion or fracture. Alignment is satisfactory. Mineralization is normal. CONCLUSION: No acute bony injury. Electronically signed by: Gt Thomas MD 05/06/2018 4:07 AM EDT
[2018-05-06] MEDS: QUEtiapine 25 MG Tablet PO SCH ×2 (08:36→21:29)
[2018-05-06] MEDS: Ascorbic Acid 500 MG Tablet PO SCH (08:36)
[2018-05-06] MEDS: Pantoprazole Sodium 20 MG DR Tablet PO SCH (08:36)
[2018-05-06] MEDS: Venlafaxine XR 75 MG Capsule PO SCH (08:36)
--- NOTE | 2018-05-06 14:48 | P.PNPSY ---
Subjective Chief Complaint: Rosen Act Remarks: This is a request for second opinion. Admission note was reviewed and I agree with the history. Patient was seen and case was discussed with nursing. Patient has been on good behavior on this unit. She has not had any aggressive behavior on the unit today. She is confused about the circumstances of her admission. Oriented x2. Mental Status Examination Appearance: Disheveled Consciousness: Alert Orientation: Person, Place Motor Activity: Other (In Gwendolyn chair) Speech: Unremarkable Language: Adequate Fund of Knowledge: Inadequate Attention and Concentration: Other (Fair) Memory: Impaired Mood: Other (Somewhat depressed) Affect: Blunt Thought Process & Associations: Circumstantial, Disorganized Thought Content: Other (Some poverty of thought) Hallucination Type: None Delusion Type: None Suicidal Ideation: No Suicidal Plan: No Suicidal Intention: No Homicidal Ideation: No Homicidal Plan: No Homicidal Intention: No Insight: Poor Judgment: Poor Assessment and Plan - Assessment (1) Dementia with behavioral disturbance Code(s): F03.91 - Unspecified dementia with behavioral disturbance Status: Acute - Plan Plan: I agree with the first opinion to continue petition. Criteria include dementia and aggressive behavior Justification for Continued Inpatient Stay: Patient would decompensate in a less restrictive setting Request Healthcare Surrogate/Guardian Advocate?: Yes (1) Dementia with behavioral disturbance Qualifiers: Dementia type: unspecified type Qualified Code(s): F03.91 - Unspecified dementia with behavioral disturbance
[2018-05-06] MEDS: Lisinopril 10 MG Tablet PO SCH (21:27)
--- NOTE | 2018-05-07 08:33 | P.PNPSY ---
Subjective Chief Complaint: Rosen Act Remarks: Reviewed electronic medical records and discussed case with staff. Follow-up was conducted in the dayroom with RN present. Patient states that she fell a few days ago onto her knees and that she is feeling alot better. She is oriented to self, could not recall the day , but does know that she is in the hospital. She states that her appetite is good and that she is sleeping well. She states " I like salmon" and is focused on her meal when asked questions. She is medication complaint. No behavioral concerns. Review of Systems All other systems reviewed negative except as stated in HPI Mental Status Examination Appearance: Disheveled Consciousness: Alert Orientation: Person, Place Motor Activity: Other (In Gwendolyn chair) Speech: Unremarkable Language: Adequate Fund of Knowledge: Inadequate Attention and Concentration: Other (Fair) Memory: Impaired Mood: Other (Somewhat depressed) Affect: Blunt Thought Process & Associations: Circumstantial, Disorganized Thought Content: Other (Some poverty of thought) Hallucination Type: None Delusion Type: None Suicidal Ideation: No Suicidal Plan: No Suicidal Intention: No Homicidal Ideation: No Homicidal Plan: No Homicidal Intention: No Insight: Poor Judgment: Poor Assessment and Plan - Assessment (1) Dementia without behavioral disturbance Code(s): F03.90 - Unspecified dementia without behavioral disturbance Status: Acute - Plan Plan: Continue current treatment plan. Justification for Continued Inpatient Stay: Moving patient to a less restrictive environment may result in her decompensation. Request Healthcare Surrogate/Guardian Advocate?: Yes
[2018-05-07] MEDS: Venlafaxine XR 75 MG Capsule PO SCH (10:59)
[2018-05-07] MEDS: Pantoprazole Sodium 20 MG DR Tablet PO SCH (11:00)
[2018-05-07] MEDS: QUEtiapine 25 MG Tablet PO SCH (11:00)
[2018-05-07] MEDS: Ascorbic Acid 500 MG Tablet PO SCH (11:01)
[2018-05-08] MEDS: Ascorbic Acid 500 MG Tablet PO SCH (08:08)
[2018-05-08] MEDS: Venlafaxine XR 75 MG Capsule PO SCH (08:08)
[2018-05-08] MEDS: Pantoprazole Sodium 20 MG DR Tablet PO SCH (08:09)
[2018-05-08] MEDS: QUEtiapine 25 MG Tablet PO SCH (08:11)
--- NOTE | 2018-05-08 10:27 | P.DSPSY ---
Psychiatry Discharge Summary Inpatient Psychiatric care?: Yes Advance Directives: No Mental Health Advance Directive: No Health Care Proxy: No - Admission Admission Date: May 04, 2018 15:12 - Admission Diagnosis (1) Dementia with behavioral disturbance Code(s): F03.91 - Unspecified dementia with behavioral disturbance Brief History: Ms. Barnes is a 78 year-old female with a history of dementia who was brought to the ED from her facility for alleged aggressive behavior there. Patient was evaluated by psychiatric nurse practitioner in the ED and Rosen Acted. Reviewing the electronic medical record, I see no previous psychiatric contact within our system. Patient seen and examined with nurse. Chart reviewed. I note progress note from patient's PCP on the chart, which I have reviewed. Case discussed with nursing staff. No behavioral issues noted overnight. On my examination today, patient presents as calm and cooperative if somewhat confused. She is unable to complete the visual-spatial or naming components of the MOCA secondary to not having her eyeglasses (nurse is trying to locate these), but her score on the remainder of the exam was 6/22. She has no idea why she has been brought into the hospital. She does say that she has occasional "tiffs," by which she means verbal disputes, with the staff at her facility, she says. She does admit to feeling somewhat depressed for the last 2-3 weeks. She denies any suicidal ideation or passive thoughts of . No hypomanic or manic symptoms. She denies any audiovisual hallucinations. I can elicit no delusional material. She does report some subjective memory issues. Remainder of the psychiatric ROS is negative. No acute physical complaints. Tobacco Use In Past 30 Days: No How Often Do You Have a Drink Containing Alcohol: 4 or more times a week Hospital Course: Patient was admitted to a locked, inpatient psychiatric unit. A general medical consultation was obtained. Appropriate precautions were in place throughout patient's hospital stay. Patient was seen and examined on the unit by psychiatry and also visited by counselor. Psychotropic medications were adjusted. Patient tolerated medication changes well without side effects. There was no evidence of any suicidality or homicidality on the inpatient unit. Collateral information was obtained from the patient's sister and also from referring facility. On the day of discharge: Patient seen and examined with nurse. Chart reviewed. Case discussed with nursing staff. No behavioral issues noted overnight. Case discussed with counselor. I also spoke with patient's sister/healthcare surrogate Sonya on the day of discharge, and she is supportive of having patient return to her facility today. On my examination today, the patient is calm and cooperative. She expresses desire to return to facility today. She remains confused as at recent baseline. She denies any suicidal or homicidal ideation, intent or plan. Mood is "really nice" and I can elicit no depressive or hypomanic/manic symptoms. She reports that she slept well overnight. She reports occasional visual phenomena of seeing a face, but she does not seem distressed by this and reports that it is chronic. A diagnosis of dementia with Lewy bodies might be considered. She denies any audiovisual hallucinations and in particular denies any command auditory hallucinations to hurt self/others. I can elicit no delusional believes. She denies any side effects from medications. She has no physical complaints. Weighing the relevant factors and based on the available evidence, I supervisor concrete stone finishing that the patient no longer meets criteria for involuntary psychiatric hospitalization. There is no evidence of imminent risk of harm to self/others, and the patient's level of function is adequate for planned level of outpatient care. Patient is likely somewhat chronically unpredictable as a consequence of her dementia diagnosis, but this risk would not be further ameliorated by retaining the patient on the inpatient unit. The patient has maximized benefit from this inpatient psychiatric hospital stay. She will be discharged today back to facility with psychiatric follow-up as arranged by counselor. Patient is also to follow up with primary care. Patient to return to psychiatric emergency room for any concerning symptoms as part of a general safety plan. - Discharge Discharge Date: 05/08/18 - Discharge Diagnosis (1) Dementia without behavioral disturbance Diagnosis: Principal Code(s): F03.90 - Unspecified dementia without behavioral disturbance Status: Acute Discharge Disposition: Assisted Living Facility - Discharge Instructions Discharge Diet: Heart Healthy Diet Activities You Can Perform: Weight Bearing As Tolerat - Discharge Time > 30 minutes Mental Status Examination Appearance: Appropriate Consciousness: Alert Orientation: Person Motor Activity: Other (Mild resting hand tremor likely related to patient's Parkinson's. No cogwheeling, no dystonias, no dyskinesias, no other motor abnormalities noted.) Speech: Unremarkable Language: Adequate Fund of Knowledge: Inadequate Attention and Concentration: Other (Fair) Memory: Impaired Mood: Appropriate Affect: Appropriate, Euthymic Thought Process & Associations: Circumstantial (In setting of dementia) Thought Content: Other (Some ongoing poverty of thought) Hallucination Type: Visual (As noted above) Delusion Type: None Suicidal Ideation: No Suicidal Plan: No Suicidal Intention: No Homicidal Ideation: No Homicidal Plan: No Homicidal Intention: No Insight: Poor Judgment: Poor Discharge/Advance Care Plan - Results Vital Signs: Last Vital Signs Temp 98.1 F 05/08/18 05:37 Pulse 75 05/08/18 05:37 Resp 18 05/08/18 05:37 BP 150/64 H 05/08/18 05:37 Pulse Ox 97 05/08/18 05:37 Lab Results: Laboratory Results Hemoglobin A1c 4.9 % (4.3-6.0) 05/05/18 07:36 Triglycerides 118 mg/dL (42-150) 05/05/18 07:36 Cholesterol 157 mg/dL (120-200) 05/05/18 07:36 LDL Cholesterol, Calc 73 mg/dL (0-99) 05/05/18 07:36 HDL Cholesterol 60.5 mg/dL (40.0-60.0) H 05/05/18 07:36 TSH 1.270 uIU/mL (0.358-3.740) 05/03/18 17:10 Urine Culture Comments Cath-cult not ind 05/03/18 16:10 Summary of Procedures: None done Imaging: ITS Impressions Head CT 05/03/18 17:37 CONCLUSION: 1. Negative noncontrast head CT. . Knee X-Ray 05/06/18 02:56 CONCLUSION: No acute bony injury. Pending Results: Lab Results (Vitamin D level) - Medications Number of antipsychotic medications at discharge: 1 - Discharge Care Plan Goals to Promote Your Health: * To prevent worsening of your condition and complications * To maintain your health at the optimal level Directions to Meet Your Goals: Take your medications as prescribed Follow your dietary instruction Follow activity as directed Keep your appointments as scheduled Take your immunizations and boosters as scheduled If your symptoms worsen call your PCP, if no PCP go to Urgent Care Center or Emergency Room For 24/01 questions related to your inpatient stay or results of tests pending at discharge, please contact Dr. Fredo Álvarez MD at [phone] Smoking is Dangerous to Your Health. Avoid second hand smoking (1) Dementia with behavioral disturbance Qualifiers: Dementia type: unspecified type Qualified Code(s): F03.91 - Unspecified dementia with behavioral disturbance
== END 2018-05-08 14:55 ==
LOC: NEPE 14:34 → NEDA 05-04 15:12 → H250 05-04 16:44
PROVIDERS: ADMIT Psychiatry & Neurology Psychiatry; ATTEND Psychiatry & Neurology Psychiatry

== ENCOUNTER 2018-06-02 20:24 | Inpatient (IN) ==
--- NOTE | 2018-06-02 21:09 | ED ---
HPI General Chief Complaint: Psychiatric Symptoms Stated Complaint: Psych Eval/[facility] Time Seen by Provider: 06/02/18 20:40 Source: patient and police Mode of arrival: ambulatory Limitations: no limitations History of Present Illness HPI Narrative: This is a 78-year-old white female who presents emergency department under Rosen act by PD. Patient lives in an [place]. According to the Rosen act she had become increasingly agitated and combative with staff. The patient has been having more issues with her mentation. She has had issues with dementia and behavior disturbance. The patient struck out at several staff members. She states that they were aggravating her and making fun of her. She denies any acute medical complaints. She denies any fever or chills. No chest pain or shortness of breath. No nausea vomiting or abdominal pain. No urinary symptoms. She reports having had a checkup. Just recently. She denies any suicidal homicidal ideation. Related Data Home Medications Medication Instructions Recorded Confirmed ascorbic acid (vitamin C) [Vitamin 500 mg PO DAILY 05/03/18 05/03/18 C] cholecalciferol (vitamin D3) 1,000 unit PO DAILY 05/03/18 05/03/18 [Vitamin D3] levothyroxine 25 mcg PO DAILY 05/03/18 05/03/18 lisinopril 10 mg PO HS 05/03/18 05/03/18 omeprazole 20 mg PO QAM 05/03/18 05/03/18 simvastatin [Zocor] 20 mg PO QPM 05/03/18 05/03/18 Previous Rx's Medication Instructions Recorded carbidopa-levodopa 1.5 tab PO TID tab 05/08/18 clonidine [Uucppooa-ASO-5] 1 patch TRANSDERMAL Q7D 15 Days 05/08/18 each quetiapine 25 mg PO BID 15 Days #30 tab 05/08/18 venlafaxine [Effexor XR] 150 mg PO DAILY #0 cap 05/08/18 Allergies Allergy/AdvReac Type Severity Reaction Status Date / Time No Known Allergies Allergy Verified 06/03/18 01:52 Review of Systems ROS: all other systems reviewed are negative [facility] Medical History Medical History Anxiety (Acute) Dementia (Acute) Depression (Acute) GERD (gastroesophageal reflux disease) (Acute) History of open sigmoidectomy (Acute) Hyperlipidemia (Acute) Hypertension (Acute) Parkinson disease (Acute) Syncope (Acute) Surgical History Surgical History S/P colostomy takedown (Acute) Social History Social History Substance History: No History of Abuse Second Hand Smoke Exposure: No Smoking Status: Never smoker How Often Do You Have a Drink Containing Alcohol: 4 or more times a week Recent Travel in [facility] within the Last 8 Weeks: No Recent Out of Country Travel within the Last 8 Weeks: No Exam Narrative Exam Narrative: GENERAL: Well-nourished, well-developed patient. Pleasantly confused but cooperative. SKIN: Warm and dry. HEAD: Normocephalic and atraumatic. EYES: No scleral icterus. No injection or drainage. ENT: No nasal drainage noted. Mucous membranes pink. Airway patent. NECK: Supple, trachea midline. Moves head freely without obvious discomfort. CARDIOVASCULAR: Regular rate and rhythm without murmurs, gallops, or rubs. RESPIRATORY: Breath sounds equal bilaterally. No accessory muscle use. GASTROINTESTINAL: Abdomen soft, non-tender, nondistended. EXTREMITIES: No cyanosis or edema. BACK: Nontender without obvious deformity. No CVA tenderness. NEURO: Patient is alert and oriented. no sensorimotor deficits. Nonfocal. Normal speech. PSYCH: No delusions. No auditory or visual hallucinations. Course Initial Documented Vital Signs Temperature 98.3 F 06/02/18 20:32 Pulse Rate 98 H 06/02/18 20:32 Respiratory Rate 18 06/02/18 20:32 Blood Pressure 190/77 H 06/02/18 20:32 Pulse Oximetry 96 06/02/18 20:32 Last Documented Vital Signs Temperature 98.3 F 06/02/18 20:32 Pulse Rate 88 06/02/18 23:15 Respiratory Rate 18 06/02/18 23:15 Blood Pressure 168/77 H 06/02/18 23:15 Pulse Oximetry 98 06/02/18 23:15 Medical Decision Making MDM Narrative Medical decision making narrative: We will perform routine laboratory testing for medical clearance Patient laboratory tests have been reviewed. She does have a mildly elevated white count of 11,700 but I do not see any source of any infection. A urine is negative for UTI. Is also noted that she has had a mild bump in her BUN and creatinine since her last visit. I suspect this is most likely more secondary to dehydration patient has a decreased GFR as well. Patient will be encouraged to drink fluids. Patient has been medically cleared. Medical Screen Exam Complete: Yes Emergency Medical Condition: Yes Differential Diagnosis Differential Diagnosis: MDM: High Differential diagnoses: Schizophrenia, schizoaffective disorder, bipolar, anxiety, depression, adjustment reaction, mood disorder NOS, ODD, depressive disorder NOS, dementia, dementia with agitation, psychosis NOS, substance induced mood disorder, infection,electrolyte abnormality, malingering. Mental health screening discussed with the patient. Psychiatric screen ordered. Lab Data Result diagrams: 06/02/18 20:43 06/02/18 20:43 Lab Results 06/02/18 06/02/18 06/02/18 Range/Units 20:43 20:43 23:00 WBC 11.7 H (4.0-11.0) th/mm3 RBC 4.13 (4.00-5.30) mil/mm3 Hgb 13.1 (11.6-15.3) gm/dL Hct 38.0 (35.0-46.0) % MCV 92.0 (80.0-100.0) fL MCH 31.8 (27.0-34.0) pg MCHC 34.5 (32.0-36.0) % RDW 13.5 (11.6-17.2) % Plt Count 177 (150-450) th/mm3 MPV 8.9 (7.0-11.0) fL Neut % (Auto) 78.3 H (16.0-70.0) % Lymph % (Auto) 11.5 (9.0-44.0) % [place] % (Auto) 7.8 (0.0-8.0) % Eos % (Auto) 1.6 (0.0-4.0) % Baso % (Auto) 0.8 (0.0-2.0) % Neut # (Auto) 9.2 H (1.8-7.7) th/mm3 Lymph # (Auto) 1.4 (1.0-4.8) th/mm3 [place] # (Auto) 0.9 (0.0-0.9) th/mm3 Eos # (Auto) 0.2 (0.0-0.4) th/mm3 Baso # (Auto) 0.1 (0.0-0.2) th/mm3 WBC Differential . Differential Comment Auto diff final Sodium 141 (136-145) meq/L Potassium 4.3 (3.5-5.1) meq/L Chloride 109 H (98-107) meq/L Carbon Dioxide 26.0 (21.0-32.0) meq/L Anion Gap 6 (5-15) meq/L BUN 28 H (7-18) mg/dL Creatinine 1.48 H (0.50-1.00) mg/dL Estimated GFR 34 L (>89) mL/min Random Glucose 102 (74-106) mg/dL Calcium 9.1 (8.5-10.1) mg/dL Magnesium 2.2 (1.5-2.5) mg/dL Total Bilirubin 0.4 (0.2-1.0) mg/dL AST 12 L (15-37) U/L ALT 11 (10-53) U/L Alkaline Phosphatase 151 H (45-117) U/L Total Protein 7.5 (6.4-8.2) g/dL Albumin 3.8 (3.4-5.0) g/dL TSH 3.230 (0.358-3.740) uIU/mL Urine Color (Yellw/Straw) Urine Clarity (Clear) Urine pH (5.0-8.5) Ur Specific [place] (1.002-1.035) Urine Protein (Neg-Trace) mg/dL Urine Glucose (UA) (Negative) mg/dL Urine Ketones (Negative) mg/dL Urine Occult Blood (Negative) Urine Nitrate (Negative) Urine Bilirubin (Negative) Urine Urobilinogen (Less than 2) mg/dL Ur Leukocyte Esterase (Negative) Urine RBC (0-3) /hpf Urine WBC (0-5) /hpf Ur Squamous Epith Cells (0-5) /hpf Hyaline Casts (0-3) /lpf Micro UA Comment Ur Microscopic Review Urine Culture Comments Urine Opiates Screen Neg (Neg) Ur Barbiturates Screen Neg (Neg) Ur Amphetamines Screen Neg (Neg) U Benzodiazepines Scrn Neg (Neg) Urine Cocaine Screen Neg (Neg) U Cannabinoids Screen Neg (Neg) Serum Alcohol Less than 3 (0-5) mg/dL 06/02/18 Range/Units 23:00 WBC (4.0-11.0) th/mm3 RBC (4.00-5.30) mil/mm3 Hgb (11.6-15.3) gm/dL Hct (35.0-46.0) % MCV (80.0-100.0) fL MCH (27.0-34.0) pg MCHC (32.0-36.0) % RDW (11.6-17.2) % Plt Count (150-450) th/mm3 MPV (7.0-11.0) fL Neut % (Auto) (16.0-70.0) % Lymph % (Auto) (9.0-44.0) % [place] % (Auto) (0.0-8.0) % Eos % (Auto) (0.0-4.0) % Baso % (Auto) (0.0-2.0) % Neut # (Auto) (1.8-7.7) th/mm3 Lymph # (Auto) (1.0-4.8) th/mm3 [place] # (Auto) (0.0-0.9) th/mm3 Eos # (Auto) (0.0-0.4) th/mm3 Baso # (Auto) (0.0-0.2) th/mm3 WBC Differential Differential Comment Sodium (136-145) meq/L Potassium (3.5-5.1) meq/L Chloride (98-107) meq/L Carbon Dioxide (21.0-32.0) meq/L Anion Gap (5-15) meq/L BUN (7-18) mg/dL Creatinine (0.50-1.00) mg/dL Estimated GFR (>89) mL/min Random Glucose (74-106) mg/dL Calcium (8.5-10.1) mg/dL Magnesium (1.5-2.5) mg/dL Total Bilirubin (0.2-1.0) mg/dL AST (15-37) U/L ALT (10-53) U/L Alkaline Phosphatase (45-117) U/L Total Protein (6.4-8.2) g/dL Albumin (3.4-5.0) g/dL TSH (0.358-3.740) uIU/mL Urine Color Yellow (Yellw/Straw) Urine Clarity Clear (Clear) Urine pH 6.0 (5.0-8.5) Ur Specific [place] 1.006 (1.002-1.035) Urine Protein Negative (Neg-Trace) mg/dL Urine Glucose (UA) Negative (Negative) mg/dL Urine Ketones Trace H (Negative) mg/dL Urine Occult Blood Negative (Negative) Urine Nitrate Negative (Negative) Urine Bilirubin Negative (Negative) Urine Urobilinogen Less than 2 (Less than 2) mg/dL Ur Leukocyte Esterase Negative (Negative) Urine RBC 1 (0-3) /hpf Urine WBC 1 (0-5) /hpf Ur Squamous Epith Cells <1 (0-5) /hpf Hyaline Casts 1 (0-3) /lpf Micro UA Comment Culture not ind Ur Microscopic Review Not Reportable Urine Culture Comments Culture not ind Urine Opiates Screen (Neg) Ur Barbiturates Screen (Neg) Ur Amphetamines Screen (Neg) U Benzodiazepines Scrn (Neg) Urine Cocaine Screen (Neg) U Cannabinoids Screen (Neg) Serum Alcohol (0-5) mg/dL Discharge Plan Discharge Disposition Patient Disposition: 30 Still Patient Discharge Condition Condition: Stable Physicians Team ED Provider: Nik Newton ED Midlevel Provider: Leroy Callejas Primary Care Provider: UNKNOWN, Rxs /Orders / Referrals /Forms Prescriptions: No Action simvastatin [Zocor] 40 mg Tablet 20 mg PO QPM RF: 0 levothyroxine 25 mcg Tablet 25 mcg PO DAILY RF: 0 ascorbic acid (vitamin C) [Vitamin C] 500 mg Tablet 500 mg PO DAILY RF: 0 lisinopril 10 mg Tablet 10 mg PO HS RF: 0 omeprazole 20 mg Capsule,Delayed Release(Dr/Ec) 20 mg PO QAM RF: 0 cholecalciferol (vitamin D3) [Vitamin D3] 1,000 unit Tablet 1,000 unit PO DAILY RF: 0 quetiapine 25 mg Tablet 25 mg PO BID 15 Days Qty: 30 RF: 1 venlafaxine [Effexor XR] 75 mg Capsule,Extended Release 24hr 150 mg PO DAILY Qty: 0 RF: 0 clonidine [[id number]-7] 0.2 mg/24 hr Patch Weekly 1 patch Transdermal Q7D 15 Days RF: 1 carbidopa-levodopa 25-100 mg Tablet 1.5 tab PO TID RF: 0 Status ED Status: Medically Cleared
[2018-06-02 21:39] LABS: Baso # (Auto) 0.1 th/mm3 (0.0-0.2); Baso % (Auto) 0.8 % (0.0-2.0); Eos # (Auto) 0.2 th/mm3 (0.0-0.4); Eos % (Auto) 1.6 % (0.0-4.0); Hemoglobin 13.1 gm/dL (11.6-15.3); Lymph # (Auto) 1.4 th/mm3 (1.0-4.8); Lymph % (Auto) 11.5 % (9.0-44.0); Mean Corpuscular HGB Conc 34.5 % (32.0-36.0); Mean Corpuscular Hemoglobin 31.8 pg (27.0-34.0); Mean Platelet Volume 8.9 fL (7.0-11.0); Mono # (Auto) 0.9 th/mm3 (0.0-0.9); Mono % (Auto) 7.8 % (0.0-8.0); Neut # (Auto) 9.2 th/mm3 (1.8-7.7); Neut % (Auto) 78.3 % (16.0-70.0); Platelet Count 177 th/mm3 (150-450); Red Blood Count 4.13 mil/mm3 (4.00-5.30); Red Cell Distribution Width 13.5 % (11.6-17.2); White Blood Count 11.7 th/mm3 (4.0-11.0)
[2018-06-02 21:59] LABS: Albumin 3.8 g/dL (3.4-5.0); Anion Gap 6 meq/L (5-15); Aspartate Aminotransferase 12 U/L (15-37); Blood Urea Nitrogen 28 mg/dL (7-18); Calcium 9.1 mg/dL (8.5-10.1); Chloride 109 meq/L (98-107); Glomerular Filtration Rate 34 mL/min (>89); Glucose,Random 102 mg/dL (74-106); Magnesium 2.2 mg/dL (1.5-2.5); Potassium 4.3 meq/L (3.5-5.1); Sodium 141 meq/L (136-145)
[2018-06-02 22:00] LABS: Alanine Aminotransferase 11 U/L (10-53)
[2018-06-02 22:09] LABS: Alkaline Phosphatase 151 U/L (45-117); Total Protein 7.5 g/dL (6.4-8.2)
[2018-06-03 00:24] LABS: Bilirubin,Urine Negative (Negative); Clarity,Urine Clear (Clear); Color,Urine Yellow (Yellw/Straw); Glucose,Urine (UA) Negative (Negative); Hyaline Casts,Urine 1 /lpf (0-3); Leukocyte Esterase,Urine Negative (Negative); Nitrite,Urine Negative (Negative); Specific Gravity,Urine 1.006 (1.002-1.035); Squamous Epithelial Cell,Urine <1 /hpf (0-5)
[2018-06-03 00:29] LABS: Amphetamine Screen,Urine Neg (Neg); Barbiturate Screen,Urine Neg (Neg); Cannabinoid Screen,Urine Neg (Neg); Cocaine Screen,Urine Neg (Neg)
[2018-06-03 00:34] LABS: Opiate Screen,Urine Neg (Neg)
[2018-06-03] MEDS ORDERED: LORazepam 0.5 MG Tablet PO PRN (21:24)
[2018-06-03] MEDS ORDERED: Acetaminophen 325 MG Tablet PO PRN (21:24)
[2018-06-03] MEDS ORDERED: Aluminum/Magnesium/Simethacone Susp 30 ML UDC PO PRN (21:24)
--- NOTE | 2018-06-04 11:37 | P.HPPSY ---
Provisional Diagnosis Admission Date: June 03, 2018 19:19 Competence Certification of Person's Competence To Provide Express and Informed Consent I have personally examined Daksha Barnes, a person being served at [facility] on, June 04, 2018 1132. Express and informed consent means consent voluntarily given in writing, by a competent person, after sufficient explanation and disclosure of the subject matter involved to enable the person to make a knowing and willful decision without any element of force, fraud, deceit, duress, or other form of constraint or coercion. This person is 18 years of age or older, is not now known to be incompetent to consent to treatment with a guardian advocate, and does not have a health care surrogate or proxy currently making medical treatment decisions. I have found this person to be one of the following: [] Competent to provide express and informed consent, as defined above, for voluntary admission to this facility and is competent to provide express and informed consent for treatment. He/she has the consistent capacity to make well reasoned, willful, and knowing decisions concerning his or her medical or mental health treatment. The person fully and consistently understands the purpose of the admission for examination/placement and is fully capable of personally exercising all rights assured [place] [X] Incompetent to provide express and informed consent to voluntary admission, and this is incompetent to provide express and informed consent to treatment. The person must be transferred to involuntary status and a petition for a guardian advocate filed with the Circuit Court. [] Refusing to provide express and informed consent to voluntary admission but is competent to provide express and informed consent for treatment. The person must be discharged or transferred to involuntary status. Form shall be completed within 24 hours of a person's arrival at the receiving facility and filed in the clinical record of each person: 1. Admitted on a voluntary basis 2. Permitted to provide express and informed consent to his/her own treatment 3. Allowed to transfer from involuntary to voluntary status 4. Prior to permitting a person to consent to his or her own treatment after having been previously found incompetent to consent to treatment. History of Present Illness Capacity: Lacks capacity Chief Complaint: Aggressive behavior History of Present Illness: Patient is a 78-year-old female with a history of dementia and previous admission to [facility]. Patient was here 30 days ago for aggressive behavior. She comes in today under similar circumstances. Patient is a poor historian and is confused about the circumstances of her admission. She is alert and oriented x2. Thus far, she has not been aggressive and is behaving well. Patient denies depressed mood. She denies suicidal or homicidal ideation intent or plan. Patient denies auditory or visual hallucinations. No manic symptoms noted. Past psych: Patient is a poor historian. There is a history of depression and admissions to the inpatient unit. Patient has been on Effexor in the past. She denies a history of suicide attempts. Past medical: See chart Past Famhx: She is unsure Past Social: Patient is and has a son. 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 - Inpatient Certification I certify that the inpatient services were ordered in accordance with Medicare regulations governing the order. This includes certification that hospital inpatient services are reasonable and necessary and in the case of services not specified as inpatient-only under 42 CFR 419.22(n), that they are appropriately provided as inpatient services in accordance to with the 2-midnight benchmark under 43 CFR 412.3(e) I certify that inpatient psychiatric hospital services are medically necessary. Evaluation and treatment and/or diagnostic testing are expected to improve the patient's condition. The patient needs on a daily basis, active treatment furnished directly by or requiring the supervision of inpatient psychiatric facility personnel. [facility] - History History Provided By: Patient - Medical History Medical History: Medical History (Last Reviewed 06/02/18 @ 21:08 by ABDIEL Rios) Anxiety Dementia Depression GERD (gastroesophageal reflux disease) History of open sigmoidectomy Hyperlipidemia Hypertension Parkinson disease Syncope - Surgical History Surgical History: Surgical History (Last Reviewed 06/02/18 @ 21:08 by ABDIEL Rios) S/P colostomy takedown - Tobacco History Second Hand Smoke Exposure: No Smoking Status: Cognitive impairment - Alcohol History How Often Do You Have a Drink Containing Alcohol: Unable to Obtain - Substance Use History Substance History: Unable to Obtain - Travel History Recent Travel in the [place] Within the Last 8 Weeks: No Recent Travel Out of the Country Within the Last 8 Weeks: No - Immunization History Tetanus Immunization: Unsure Medications and Allergies Active Medications: Active Medications Acetaminophen (Tylenol) 650 mg PO Q4H PRN PRN Reason: Pain 1-5 or Temp >101F Al Hydrox/Mg Hydrox/Simethicone (Mag-Al Plus Susp Liq) 30 ml PO Q6H PRN PRN Reason: DYSPEPSIA Al Hydroxide/Mg Hydroxide (Milk Of Magnesia Liq) 30 ml PO DAILY PRN PRN Reason: CONSTIPATION Diphenhydramine HCl (Benadryl) 50 mg PO Q6H PRN PRN Reason: For mild anxiety and/or EPS Diphenhydramine HCl (Benadryl Inj) 50 mg IM Q6H PRN PRN Reason: For mild anxiety and/or EPS Lorazepam (Ativan) 0.5 mg PO Q12H PRN PRN Reason: MODERATE TO SEVERE ANXIETY Lorazepam (Ativan Inj) 0.5 mg IM Q12H PRN PRN Reason: MODERATE TO SEVERE ANXIETY Allergies Allergy/AdvReac Type Severity Reaction Status Date / Time No Known Allergies Allergy Verified 06/03/18 01:52 Home Medications Medication Instructions Recorded Confirmed Type ascorbic acid (vitamin C) [Vitamin 500 mg PO DAILY 05/03/18 05/03/18 History C] cholecalciferol (vitamin D3) 1,000 unit PO DAILY 05/03/18 05/03/18 History [Vitamin D3] levothyroxine 25 mcg PO DAILY 05/03/18 05/03/18 History lisinopril 10 mg PO HS 05/03/18 05/03/18 History omeprazole 20 mg PO QAM 05/03/18 05/03/18 History simvastatin [Zocor] 20 mg PO QPM 05/03/18 05/03/18 History Results - Labs CBC & Chem 7: 06/02/18 20:43 06/02/18 20:43 Exam Vital signs: Vital Signs 06/03/18 15:39 06/04/18 06:23 06/04/18 06:39 Temperature 98.5 F 97.9 F Pulse Rate 92 H Respiratory Rate 18 18 Blood Pressure 158/75 H 196/81 H 170/72 H Pulse Oximetry 98 92 L Mental Status Examination Appearance: Disheveled Consciousness: Alert Orientation: Person, Place Motor Activity: Other (not tested) Speech: Hesitant, Slow Language: Adequate Fund of Knowledge: Inadequate Attention and Concentration: Easily distracted Memory: Impaired Mood: Appropriate Affect: Blunt Thought Process & Associations: Disorganized Thought Content: Appropriate Hallucination Type: None Delusion Type: None Suicidal Ideation: No Suicidal Plan: No Suicidal Intention: No Homicidal Ideation: No Homicidal Plan: No Homicidal Intention: No Insight: Poor Judgment: Poor Assessment and Plan - Assessment (1) Dementia without behavioral disturbance Code(s): F03.90 - Unspecified dementia without behavioral disturbance Status: Acute - Plan Plan: Estimated LOS: [] days Patient does not have the capacity for admission and will be petition. We will work to obtain her psychotropic medication list. Her creatinine is elevated and a medical consult is pending from yesterday. We will also get an EKG. Justification for Continued Inpatient Stay: Patient would decompensate in a less restrictive setting
[2018-06-04] MEDS ORDERED: hydrALAZINE 25 MG Tablet PO PRN (16:20)
--- NOTE | 2018-06-04 16:25 | P.CON ---
History of Present Illness Service: Hospitalist Consult date: 06/04/18 Requesting Physician: New Monet Reason for Consult: Assist with medical management Primary Care Provider: UNKNOWN History of Present Illness: This is a 78-year-old female with a past medical history significant for dementia, Parkinson's disease, depression/anxiety, hypertension, dyslipidemia and GERD who was admitted to the inpatient psychiatric unit as a transfer from another facility due to behavioral disturbance. Reportedly, patient was combative and aggressive at the other facility. Patient had a similar admission last month. Patient seen and examined. Patient is a very poor historian and is able to provide me with any meaningful history therefore history is obtained from review of electronic medical record. Patient does not voice any acute medical complaints or concerns. She denies any dizziness, lightheadedness, vision changes, fever, chills, cough, shortness of breath, chest pain, nausea, vomiting, abdominal pain, diarrhea, constipation or urinary difficulties. Discussed with nursing staff and no acute issues or events noted. Review of Systems All other systems reviewed negative except as stated in HPI PMFSH - History History Provided By: Patient - Medical History Medical History: Medical History (Last Reviewed 06/04/18 @ 16:14 by Kellen Adams) Anxiety Dementia Depression GERD (gastroesophageal reflux disease) History of open sigmoidectomy Hyperlipidemia Hypertension Parkinson disease Syncope - Surgical History Surgical History: Surgical History (Last Reviewed 06/04/18 @ 16:14 by Kellen Adams) S/P colostomy takedown - Family History Family History: Family History (Last Updated 06/04/18 @ 16:14 by Kellen Adams) Other Family history non-contributory - Social History I have reviewed the patient's Social History: Yes - Tobacco History Second Hand Smoke Exposure: No Smoking Status: Cognitive impairment - Alcohol History How Often Do You Have a Drink Containing Alcohol: Unable to Obtain - Substance Use History Substance History: Unable to Obtain - Travel History Recent Travel in the [place] Within the Last 8 Weeks: No Recent Travel Out of the Country Within the Last 8 Weeks: No - Immunization History Tetanus Immunization: Unsure Medications and Allergies Active Medications: Active Medications Acetaminophen (Tylenol) 650 mg PO Q4H PRN PRN Reason: Pain 1-5 or Temp >101F Al Hydrox/Mg Hydrox/Simethicone (Mag-Al Plus Susp Liq) 30 ml PO Q6H PRN PRN Reason: DYSPEPSIA Al Hydroxide/Mg Hydroxide (Milk Of Tamika Foy) 30 ml PO DAILY PRN PRN Reason: CONSTIPATION Diphenhydramine HCl (Benadryl) 50 mg PO Q6H PRN PRN Reason: For mild anxiety and/or EPS Diphenhydramine HCl (Benadryl Inj) 50 mg IM Q6H PRN PRN Reason: For mild anxiety and/or EPS Levothyroxine Sodium (Synthroid) 25 mcg PO DAILY@0600 KISHOR Lisinopril (Prinivil) 10 mg PO HS KISHOR Lorazepam (Ativan) 0.5 mg PO Q12H PRN PRN Reason: MODERATE TO SEVERE ANXIETY Lorazepam (Ativan Inj) 0.5 mg IM Q12H PRN PRN Reason: MODERATE TO SEVERE ANXIETY Pantoprazole Sodium (Protonix) 20 mg PO DAILY KISHOR Pravastatin Sodium (Pravachol) 40 mg PO QPM KISHOR Vitamin D (Vitamin D3) 1,000 unit PO DAILY KISHOR Allergies Allergy/AdvReac Type Severity Reaction Status Date / Time No Known Allergies Allergy Verified 06/03/18 01:52 Home Medications Medication Instructions Recorded Confirmed Type ascorbic acid (vitamin C) [Vitamin 500 mg PO DAILY 05/03/18 05/03/18 History C] cholecalciferol (vitamin D3) 1,000 unit PO DAILY 05/03/18 05/03/18 History [Vitamin D3] levothyroxine 25 mcg PO DAILY 05/03/18 05/03/18 History lisinopril 10 mg PO HS 05/03/18 05/03/18 History omeprazole 20 mg PO QAM 05/03/18 05/03/18 History simvastatin [Zocor] 20 mg PO QPM 05/03/18 05/03/18 History Physical Exam Vital signs: Vital Signs 06/04/18 06:23 06/04/18 06:39 Temperature 97.9 F Respiratory Rate 18 Blood Pressure 196/81 H 170/72 H Pulse Oximetry 92 L Narrative: GENERAL: This is a well-developed well-nourished elderly female patient in no acute distress. She is awake and alert. She is seated in the day room watching TV. SKIN: Warm and dry. HEAD: Atraumatic. Normocephalic. EYES: Pupils equal and round. No scleral icterus. No injection or drainage. ENT: No nasal bleeding or discharge. Mucous membranes pink and moist. NECK: Trachea midline. CARDIOVASCULAR: Regular rate and rhythm. RESPIRATORY: No accessory muscle use. Clear to auscultation. Breath sounds equal bilaterally. GASTROINTESTINAL: Abdomen soft, non-tender, nondistended. +BS. MUSCULOSKELETAL: Extremities without clubbing, cyanosis, or edema. No obvious deformities. NEUROLOGICAL: Awake and alert. Oriented to self. No obvious cranial nerve deficits. Motor grossly within normal limits. Able to move all extremities spontaneously. Normal speech. PSYCHIATRIC: Calm and cooperative. Judgment and insight poor. Results - Labs CBC & Chem 7: 06/02/18 20:43 06/02/18 20:43 Assessment and Plan - Plan 78-year-old female with a past medical history significant for dementia, Parkinson's disease, depression/anxiety, hypertension, dyslipidemia, hypothyroidism and GERD admitted to inpatient psychiatry for behavioral disturbances. Hospitalist service is consulted to assist with medical management. Dementia with behavioral disturbances Depression/anxiety -Management per psychiatric team Hypertension, not well controlled off of her antihypertensive medication -Resume patient on previous antihypertensive regimen of clonidine patch and lisinopril -po Hydralazine prn with parameters -Monitor BP trend and adjust treatment accordingly SAMANTHA, suspect secondary to dehydration/poor oral intake UA unremarkable Creatinine 1.48, BUN 28 previous creatinine 0.93 05/05/18 -Encourage fluid intake -Avoid nephrotoxic agents -may need to hold lisinopril -Continue to monitor kidney function closely Parkinson's disease GERD Hypothyroidism, TSH 3.230 Dyslipidemia -chronic, stable conditions -Resume on previous home medication regimen DVT prophylaxis -Patient is ambulatory Thank you very kindly for this consultation. We will continue to follow patient along with you. Discussed Condition With: Patient, nursing staff
[2018-06-04] MEDS: Pantoprazole Sodium 20 MG DR Tablet PO SCH (17:57)
[2018-06-04] MEDS: Lisinopril 10 MG Tablet PO SCH (20:57)
[2018-06-05 08:07] LABS: Calcium 8.4 mg/dL (8.5-10.1); Carbon Dioxide 29.2 meq/L (21.0-32.0); Potassium 3.7 meq/L (3.5-5.1)
[2018-06-05] MEDS: Pantoprazole Sodium 20 MG DR Tablet PO SCH (09:56)
--- NOTE | 2018-06-05 12:01 | P.PNPSY ---
Subjective Chief Complaint: Aggressive behavior Remarks: Patient initially seen with H&P dictated by Dr. Monet. His H&P reviewed and agreed with. I have completed the initial psychiatric template admission orders and the med reconciliation. Patient is seen by me today in the day room with nurse Minnie. Patient compliant with medications to date. Dr. Monet has initiated Rosen act he is the first opinion petition supporting Rosen act. I agree with that thus I will cosign second opinion petition supporting Rosen act. I also feel patient does not have capacity thus I will ask for healthcare surrogate and guardian advocate. Patient seen by me in the day room she is an alert diffusely confused to place time and situation. Does not remember her year. She is confused about living situation for saying she was living with her and then saying she lives in an NURSING HOME. Stated she does have a little bit of a temper but is unable to identify behaviors leading to this hospitalization. We will restart her on her medic medications including her Effexor and Seroquel along with permission of healthcare surrogate. We need to work with patient's NURSING HOME about possible return there when she is medically and behaviorally stabilized Review of Systems All other systems reviewed negative except as stated in HPI Mental Status Examination Appearance: Disheveled Consciousness: Alert Orientation: Person Motor Activity: Other (Patient sitting in [place] with a walker nearby) Speech: Hesitant, Slow Language: Adequate Fund of Knowledge: Inadequate Attention and Concentration: Easily distracted Memory: Impaired Mood: Other (Euthymic to somewhat restricted) Affect: Other (Decreased range and intensity) Thought Process & Associations: Disorganized Thought Content: Appropriate Hallucination Type: None Delusion Type: None Suicidal Ideation: No Suicidal Plan: No Suicidal Intention: No Homicidal Ideation: No Homicidal Plan: No Homicidal Intention: No Insight: Poor Judgment: Poor Assessment and Plan - Assessment (1) Alzheimer's disease with late onset Code(s): G30.1 - Alzheimer's disease with late onset; F02.80 - Dementia in other diseases classified elsewhere without behavioral disturbance Status: Acute - Plan Plan: At this time patient does not meet Rosen act criteria at done second opinion petition supporting Rosen act will also do healthcare surrogate and guardian advocate. Will the hospitalist consult of this also. We will continue medication per the med reconciliation at this time with permission of healthcare surrogate. We will need to speak also with family related to placement issues Justification for Continued Inpatient Stay: At this time patient with decompensated placed on a lower level of care Discharge Planning: To be determined (1) Alzheimer's disease with late onset Qualifiers: Dementia behavioral disturbance: with behavioral disturbance Qualified Code(s ): G30.1 - Alzheimer's disease with late onset; F02.81 - Dementia in other diseases classified elsewhere with behavioral disturbance
--- NOTE | 2018-06-05 15:13 | P.PN ---
Subjective Interval history: Follow-up on patient with dementia, hypertension, SAMANTHA. Patient seen and examined. Patient seen in concert with Dr. Echavarria. Patient is partially oriented. She becomes tearful when she discusses with Dr. Echavarria her family history of psychiatric illness and her father committing suicide. She does not endorse any acute medical complaints or concerns. She is asking how long she will be here. Physical Exam Vital signs: Vital Signs 06/04/18 17:47 Temperature 98.4 F Pulse Rate 76 Respiratory Rate 18 Blood Pressure 149/68 H Pulse Oximetry 94 L Intake & Output 06/04/18 06/05/18 06/05/18 18:59 06:59 18:59 Intake Total 1680 / 1680 340 / 340 1200 / 1200 Balance 1680 / 1680 340 / 340 1200 / 1200 Intake: Oral 1680 / 1680 240 / 240 1200 / 1200 Oral Supplement 100 / 100 Other: # Voids 3 2 # Bowel Movements 0 Narrative: GENERAL: This is a well-developed well-nourished elderly female patient in no acute distress. She is awake and alert. She is seated in the day room. She is confused. Partially oriented. SKIN: Warm and dry. HEENT: Atraumatic. Normocephalic. Pupils equal and round. No scleral icterus. No injection or drainage. No nasal bleeding or discharge. Mucous membranes pink and moist. NECK: Trachea midline. CARDIOVASCULAR: Regular rate and rhythm. RESPIRATORY: No accessory muscle use. Clear to auscultation. Breath sounds equal bilaterally. GASTROINTESTINAL: Abdomen soft, non-tender, nondistended. +BS. MUSCULOSKELETAL: Extremities without clubbing, cyanosis, or edema. No obvious deformities. NEUROLOGICAL: Awake and alert. Oriented to self. No obvious cranial nerve deficits. Motor grossly within normal limits. Able to move all extremities spontaneously. Normal speech. PSYCHIATRIC: Calm and cooperative. Judgment and insight poor. Results - Labs CBC & Chem 7: 06/02/18 20:43 06/05/18 06:19 Laboratory Results - last 24 hr 06/05/18 06:19 Sodium 145 Potassium 3.7 Chloride 112 H Carbon Dioxide 29.2 Anion Gap 4 L BUN 17 Creatinine 0.96 Estimated GFR 56 L Random Glucose 100 Calcium 8.4 L Assessment and Plan - Plan 78-year-old female with a past medical history significant for dementia, Parkinson's disease, depression/anxiety, hypertension, dyslipidemia, hypothyroidism and GERD admitted to inpatient psychiatry for behavioral disturbances. Hospitalist service is consulted to assist with medical management. Dementia with behavioral disturbances Depression/anxiety -Management per psychiatric team Hypertension, not well controlled off of her antihypertensive medication -continue patient on previous antihypertensive regimen of clonidine patch and lisinopril -po Hydralazine prn with parameters -Monitor BP trend and adjust treatment accordingly SAMANTHA, suspect secondary to dehydration/poor oral intake, resolved UA unremarkable Creatinine 1.48, BUN 28 previous creatinine 0.93 05/05/18 -06/05 repeat creatinine 0.96 -continue to encourage fluid intake -Avoid nephrotoxic agents -Continue to monitor kidney function as indicated Parkinson's disease GERD Hypothyroidism, TSH 3.230 Dyslipidemia -chronic, stable conditions -Resume on previous home medication regimen DVT prophylaxis -Patient is ambulatory Patient appears stable from hospitalist standpoint. [facility] will sign off. Please reconsult if needed. Code Status: Full Discussed Condition With: Patient, nursing staff, Dr. Echavarria
--- NOTE | 2018-06-05 20:04 | ECG ---
Date Performed: 06/04/2018 Time Performed: 11:57:53 PTAGE: 78 years EKG: Sinus rhythm NORMAL ECG PREVIOUS TRACING : 05/05/2018 11.15 Since the previous tracing, no significant change noted DOCTOR: Marissa Casas Interpretating Date/Time 06/05/2018 19:56:11
[2018-06-05] MEDS: Lisinopril 10 MG Tablet PO SCH (20:29)
[2018-06-05] MEDS: QUEtiapine 25 MG Tablet PO SCH (21:37)
[2018-06-06] MEDS: Pantoprazole Sodium 20 MG DR Tablet PO SCH (09:02)
[2018-06-06] MEDS: Ascorbic Acid 500 MG Tablet PO SCH (09:02)
[2018-06-06] MEDS: Venlafaxine XR 75 MG Capsule PO SCH (09:03)
[2018-06-06] MEDS: QUEtiapine 25 MG Tablet PO SCH ×2 (09:03→20:28)
--- NOTE | 2018-06-06 10:32 | P.PNPSY ---
Subjective Chief Complaint: Aggressive behavior Remarks: Patient seen in [facility] with RN and with Dr. Lara. Patient is calm and feels happy that she received a shower today. She continues diffusely confused and disoriented. There are no behavioral problems today at this time. We will continue to await word from healthcare surrogate for permission to start medication Review of Systems All other systems reviewed negative except as stated in HPI Mental Status Examination Appearance: Appropriate Consciousness: Alert Orientation: Person Motor Activity: Other (Patient sitting in [place] with a walker nearby) Speech: Hesitant, Slow Language: Adequate Fund of Knowledge: Inadequate Attention and Concentration: Easily distracted Memory: Impaired Mood: Other (Euthymic to somewhat restricted) Affect: Other (Decreased range and intensity) Thought Process & Associations: Disorganized Thought Content: Appropriate Hallucination Type: None Delusion Type: None Suicidal Ideation: No Suicidal Plan: No Suicidal Intention: No Homicidal Ideation: No Homicidal Plan: No Homicidal Intention: No Insight: Poor Judgment: Poor Assessment and Plan - Assessment (1) Alzheimer's disease with late onset Code(s): G30.1 - Alzheimer's disease with late onset; F02.80 - Dementia in other diseases classified elsewhere without behavioral disturbance Status: Acute - Plan Plan: Patient remains diffusely confused disoriented demented, the no significant behavioral problems at this time. Compliant medication. Justification for Continued Inpatient Stay: At this time patient with decompensated placed on a lower level of care Discharge Planning: To be determined (1) Alzheimer's disease with late onset Qualifiers: Dementia behavioral disturbance: with behavioral disturbance Qualified Code(s ): G30.1 - Alzheimer's disease with late onset; F02.81 - Dementia in other diseases classified elsewhere with behavioral disturbance
[2018-06-06] MEDS: Lisinopril 10 MG Tablet PO SCH (20:28)
[2018-06-07] MEDS: Pantoprazole Sodium 20 MG DR Tablet PO SCH (08:55)
[2018-06-07] MEDS: QUEtiapine 25 MG Tablet PO SCH ×2 (08:55→20:46)
[2018-06-07] MEDS: Venlafaxine XR 75 MG Capsule PO SCH (08:55)
[2018-06-07] MEDS: Ascorbic Acid 500 MG Tablet PO SCH (08:55)
--- NOTE | 2018-06-07 09:56 | P.PNPSY ---
Subjective Chief Complaint: Aggressive behavior Remarks: Patient is seen today in the day room on the floor staff, chart reviewed, patient continues diffusely confused disoriented stating today that she [facility] with her . She does not remember the location of the name of it or telephone number. It is somewhat contradicts the conversation I had with the patient's sister yesterday. Patient does denies suicidality or voices. Has been no significant behavioral problem. However for now will continue treatment. Continue medications that have been approved by her sister as healthcare surrogate. We will meet with the patient's sister in a few days. The patient is scheduled tomorrow for [employer] Review of Systems All other systems reviewed negative except as stated in HPI Mental Status Examination Appearance: Appropriate Consciousness: Alert Orientation: Person Motor Activity: Other (Patient sitting in [place] with a walker nearby) Speech: Hesitant, Slow Language: Adequate Fund of Knowledge: Inadequate Attention and Concentration: Easily distracted Memory: Impaired Mood: Other (Euthymic to somewhat restricted) Affect: Other (Decreased range and intensity) Thought Process & Associations: Disorganized Thought Content: Appropriate Hallucination Type: None Delusion Type: None Suicidal Ideation: No Suicidal Plan: No Suicidal Intention: No Homicidal Ideation: No Homicidal Plan: No Homicidal Intention: No Insight: Poor Judgment: Poor Assessment and Plan - Assessment (1) Alzheimer's disease with late onset Code(s): G30.1 - Alzheimer's disease with late onset; F02.80 - Dementia in other diseases classified elsewhere without behavioral disturbance Status: Acute - Plan Plan: Patient continues diffusely confused disoriented demented, but no significant behavior problems. We will need to verify with sister patient's claims of her living situation. For now continue treatment no change patient scheduled for [employer] tomorrow Justification for Continued Inpatient Stay: At this time patient would decompensated placed in a lower level of care Discharge Planning: To be determined Request Healthcare Surrogate/Guardian Advocate?: Yes (1) Alzheimer's disease with late onset Qualifiers: Dementia behavioral disturbance: with behavioral disturbance Qualified Code(s ): G30.1 - Alzheimer's disease with late onset; F02.81 - Dementia in other diseases classified elsewhere with behavioral disturbance
[2018-06-07] MEDS: Lisinopril 10 MG Tablet PO SCH (20:46)
[2018-06-08] MEDS: QUEtiapine 25 MG Tablet PO SCH ×2 (08:46→21:11)
[2018-06-08] MEDS: Ascorbic Acid 500 MG Tablet PO SCH (08:46)
[2018-06-08] MEDS: Pantoprazole Sodium 20 MG DR Tablet PO SCH (08:46)
[2018-06-08] MEDS: Venlafaxine XR 75 MG Capsule PO SCH (08:47)
--- NOTE | 2018-06-08 10:17 | P.PNPSY ---
Subjective Chief Complaint: Aggressive behavior Remarks: Patient is seen in her room continues, though diffusely confused. Explained [employer] [place] hearing is upcoming. Patient then seen and [place] [facility] patient had a case continued for [address]. For now continue treatment patient was calm and cooperative during [place] [address] hearing Review of Systems All other systems reviewed negative except as stated in HPI, unobtainable due to endotracheal tube Mental Status Examination Appearance: Appropriate Consciousness: Alert Orientation: Person Motor Activity: Other (Patient sitting in [place] with a walker nearby) Speech: Hesitant, Slow Language: Adequate Fund of Knowledge: Inadequate Attention and Concentration: Easily distracted Memory: Impaired Mood: Other (Euthymic to somewhat restricted) Affect: Other (Decreased range and intensity) Thought Process & Associations: Disorganized Thought Content: Appropriate Hallucination Type: None Delusion Type: None Suicidal Ideation: No Suicidal Plan: No Suicidal Intention: No Homicidal Ideation: No Homicidal Plan: No Homicidal Intention: No Insight: Poor Judgment: Poor Assessment and Plan - Assessment (1) Alzheimer's disease with late onset Code(s): G30.1 - Alzheimer's disease with late onset; F02.80 - Dementia in other diseases classified elsewhere without behavioral disturbance Status: Acute - Plan Plan: Patient continues diffusely confused disoriented though no significant behavioral problems. Patient had a [place] case continued for 2 weeks Justification for Continued Inpatient Stay: At this time patient with decompensated placed on a lower level of care Discharge Planning: To be determined Request Healthcare Surrogate/Guardian Advocate?: Yes (1) Alzheimer's disease with late onset Qualifiers: Dementia behavioral disturbance: with behavioral disturbance Qualified Code(s ): G30.1 - Alzheimer's disease with late onset; F02.81 - Dementia in other diseases classified elsewhere with behavioral disturbance
[2018-06-08] MEDS: Lisinopril 10 MG Tablet PO SCH (21:11)
[2018-06-09] MEDS: Venlafaxine XR 75 MG Capsule PO SCH (08:35)
[2018-06-09] MEDS: Ascorbic Acid 500 MG Tablet PO SCH (08:36)
[2018-06-09] MEDS: Pantoprazole Sodium 20 MG DR Tablet PO SCH (08:36)
[2018-06-09] MEDS: QUEtiapine 25 MG Tablet PO SCH ×2 (08:37→20:54)
--- NOTE | 2018-06-09 12:01 | P.PNPSY ---
Subjective Chief Complaint: Aggressive behavior Remarks: Patient is seen in day room with nurse PAC, chart reviewed, patient compliant medication. Patient calm and cooperative focusing on discharge. She also continues diffusely confused. Stating that her is here to take her home. Patient in no complaints of pain at this time. For now continue treatment Review of Systems All other systems reviewed negative except as stated in HPI Mental Status Examination Appearance: Appropriate Consciousness: Alert Orientation: Person Motor Activity: Other (Patient sitting in [place] with a walker nearby) Speech: Hesitant, Slow Language: Adequate Fund of Knowledge: Inadequate Attention and Concentration: Easily distracted Memory: Impaired Mood: Other (Euthymic to somewhat restricted) Affect: Other (Decreased range and intensity) Thought Process & Associations: Disorganized Thought Content: Appropriate Hallucination Type: None Delusion Type: None Suicidal Ideation: No Suicidal Plan: No Suicidal Intention: No Homicidal Ideation: No Homicidal Plan: No Homicidal Intention: No Insight: Poor Judgment: Poor Assessment and Plan - Assessment (1) Alzheimer's disease with late onset Code(s): G30.1 - Alzheimer's disease with late onset; F02.80 - Dementia in other diseases classified elsewhere without behavioral disturbance Status: Acute - Plan Plan: Patient continues demented confused with no behavioral problems, compliant medication. For now continue treatment Justification for Continued Inpatient Stay: At this time patient with decompensated placed in a lower level of care Discharge Planning: To be determined Request Healthcare Surrogate/Guardian Advocate?: Yes (1) Alzheimer's disease with late onset Qualifiers: Dementia behavioral disturbance: with behavioral disturbance Qualified Code(s ): G30.1 - Alzheimer's disease with late onset; F02.81 - Dementia in other diseases classified elsewhere with behavioral disturbance
[2018-06-09] MEDS: Lisinopril 10 MG Tablet PO SCH (20:54)
[2018-06-10] MEDS: QUEtiapine 25 MG Tablet PO SCH ×2 (08:14→21:05)
[2018-06-10] MEDS: Venlafaxine XR 75 MG Capsule PO SCH (08:14)
[2018-06-10] MEDS: Pantoprazole Sodium 20 MG DR Tablet PO SCH (08:15)
[2018-06-10] MEDS: Ascorbic Acid 500 MG Tablet PO SCH (08:15)
--- NOTE | 2018-06-10 12:27 | P.PNPSY ---
Subjective Chief Complaint: Aggressive behavior Remarks: Pt seen and discussed with staff. She was admitted for confusion and agitation. She c/o of seeing under her bed. She fell 48 hours ago and has been consistently refusing to get xray. No complaints of pain or discomfort and post fall observation has been completed. No SI/HI. Mental Status Examination Appearance: Appropriate Consciousness: Alert Orientation: Person Motor Activity: Other (Patient sitting in [place] with a walker nearby) Speech: Hesitant, Slow Language: Adequate Fund of Knowledge: Inadequate Attention and Concentration: Easily distracted Memory: Impaired Mood: Other (Euthymic to somewhat restricted) Affect: Other (Decreased range and intensity) Thought Process & Associations: Disorganized Thought Content: Appropriate Hallucination Type: None Delusion Type: None Suicidal Ideation: No Suicidal Plan: No Suicidal Intention: No Homicidal Ideation: No Homicidal Plan: No Homicidal Intention: No Insight: Poor Judgment: Poor Assessment and Plan - Assessment (1) Alzheimer's disease with late onset Code(s): G30.1 - Alzheimer's disease with late onset; F02.80 - Dementia in other diseases classified elsewhere without behavioral disturbance Status: Acute - Plan Plan: Continue current tx plan Justification for Continued Inpatient Stay: risk of decompensation Request Healthcare Surrogate/Guardian Advocate?: Yes (1) Alzheimer's disease with late onset Qualifiers: Dementia behavioral disturbance: with behavioral disturbance Qualified Code(s ): G30.1 - Alzheimer's disease with late onset; F02.81 - Dementia in other diseases classified elsewhere with behavioral disturbance
[2018-06-10] MEDS: Lisinopril 10 MG Tablet PO SCH (21:05)
[2018-06-11] MEDS: Pantoprazole Sodium 20 MG DR Tablet PO SCH (08:39)
[2018-06-11] MEDS: QUEtiapine 25 MG Tablet PO SCH ×2 (08:40→20:21)
[2018-06-11] MEDS: Ascorbic Acid 500 MG Tablet PO SCH (08:40)
[2018-06-11] MEDS: Venlafaxine XR 75 MG Capsule PO SCH (08:40)
--- NOTE | 2018-06-11 09:07 | P.PNPSY ---
Subjective Chief Complaint: Aggressive behavior Remarks: Reviewed electronic medical record and discussed with nursing staff. Rounded on patient with CHELI Hernandez. Patient is pleasant and confused. She uses a walker. Patient asking staff to call her sister in [place] and she would not how to get her out of the hospital. Needs alot of coaching to take her medications due to her paranoia. No aggressive behaviors reported. Review of Systems All other systems reviewed negative except as stated in HPI Mental Status Examination Appearance: Appropriate Consciousness: Alert Orientation: Person Motor Activity: Other (Patient sitting in [place] with a walker nearby) Speech: Hesitant, Slow Language: Adequate Fund of Knowledge: Inadequate Attention and Concentration: Easily distracted Memory: Impaired Mood: Other (Euthymic to somewhat restricted) Affect: Other (Decreased range and intensity) Thought Process & Associations: Disorganized Thought Content: Appropriate Hallucination Type: None Delusion Type: None Suicidal Ideation: No Suicidal Plan: No Suicidal Intention: No Homicidal Ideation: No Homicidal Plan: No Homicidal Intention: No Insight: Poor Judgment: Poor Assessment and Plan - Assessment (1) Dementia with behavioral disturbance Code(s): F03.91 - Unspecified dementia with behavioral disturbance Status: Acute - Plan Plan: Continue current tx plan Justification for Continued Inpatient Stay: Moving patient to a less restrictive environment may result in his decompensation. Request Healthcare Surrogate/Guardian Advocate?: Yes (1) Dementia with behavioral disturbance Qualifiers: Dementia type: unspecified type Qualified Code(s): F03.91 - Unspecified dementia with behavioral disturbance
[2018-06-11] MEDS: Lisinopril 10 MG Tablet PO SCH (20:20)
[2018-06-12] MEDS: Venlafaxine XR 75 MG Capsule PO SCH (09:09)
[2018-06-12] MEDS: QUEtiapine 25 MG Tablet PO SCH ×2 (09:09→20:05)
[2018-06-12] MEDS: Ascorbic Acid 500 MG Tablet PO SCH (09:09)
[2018-06-12] MEDS: Pantoprazole Sodium 20 MG DR Tablet PO SCH (09:09)
--- NOTE | 2018-06-12 11:03 | P.PNPSY ---
Subjective Chief Complaint: Aggressive behavior Remarks: Patient seen in day room with nurse Cherie, chart reviewed, patient compliant with medications. Patient calm and cooperative me pleasant with me. Continues diffusely confused and demented. She continues to question placement when she will be discharged. For now continue treatment Review of Systems All other systems reviewed negative except as stated in HPI Mental Status Examination Appearance: Appropriate Consciousness: Alert Orientation: Person Motor Activity: Other (Patient sitting in [place] with a walker nearby) Speech: Hesitant, Slow Language: Adequate Fund of Knowledge: Inadequate Attention and Concentration: Easily distracted Memory: Impaired Mood: Other (Euthymic to somewhat restricted) Affect: Other (Decreased range and intensity) Thought Process & Associations: Disorganized Thought Content: Appropriate Hallucination Type: None Delusion Type: None Suicidal Ideation: No Suicidal Plan: No Suicidal Intention: No Homicidal Ideation: No Homicidal Plan: No Homicidal Intention: No Insight: Poor Judgment: Poor Assessment and Plan - Assessment (1) Alzheimer's disease with late onset Code(s): G30.1 - Alzheimer's disease with late onset; F02.80 - Dementia in other diseases classified elsewhere without behavioral disturbance Status: Acute - Plan Plan: Patient remains diffusely confused or disoriented demented, compliant medication , for now continue treatment, patient showing no significant behavioral problems at this time Justification for Continued Inpatient Stay: At this time patient with decompensated placed in a lower level of care Discharge Planning: To be determined Request Healthcare Surrogate/Guardian Advocate?: Yes (1) Alzheimer's disease with late onset Qualifiers: Dementia behavioral disturbance: with behavioral disturbance Qualified Code(s ): G30.1 - Alzheimer's disease with late onset; F02.81 - Dementia in other diseases classified elsewhere with behavioral disturbance
[2018-06-12] MEDS: Lisinopril 10 MG Tablet PO SCH (20:07)
[2018-06-13] MEDS: Pantoprazole Sodium 20 MG DR Tablet PO SCH (09:22)
[2018-06-13] MEDS: Ascorbic Acid 500 MG Tablet PO SCH (09:22)
[2018-06-13] MEDS: Venlafaxine XR 75 MG Capsule PO SCH (09:22)
[2018-06-13] MEDS: QUEtiapine 25 MG Tablet PO SCH ×2 (09:23→20:12)
--- NOTE | 2018-06-13 10:59 | P.PNPSY ---
Subjective Chief Complaint: Aggressive behavior Remarks: Met with patient's sister and son discussing patient's diagnosis behaviors relationships with her children and her second . It appears there is some significant strain and conflict between her second and patient's son and son's children. That may have also been reflected in some of their friends after their marriage. In any event at this time we are quite concerned about the patient may be consideration of a placement in his facility other than her her 's. Patient then seen and unit she is calm and cooperative pleasant pleasantly confused excited about seeing her family. For now continue treatment no change will work with family related to placement issues Review of Systems All other systems reviewed negative except as stated in HPI Mental Status Examination Appearance: Appropriate Consciousness: Alert Orientation: Person Motor Activity: Other (Patient sitting in [place] with a walker nearby) Speech: Hesitant, Slow Language: Adequate Fund of Knowledge: Inadequate Attention and Concentration: Easily distracted Memory: Impaired Mood: Other (Euthymic to somewhat restricted) Affect: Other (Decreased range and intensity) Thought Process & Associations: Disorganized Thought Content: Appropriate Hallucination Type: None Delusion Type: None Suicidal Ideation: No Suicidal Plan: No Suicidal Intention: No Homicidal Ideation: No Homicidal Plan: No Homicidal Intention: No Insight: Poor Judgment: Poor Assessment and Plan - Assessment (1) Alzheimer's disease with late onset Code(s): G30.1 - Alzheimer's disease with late onset; F02.80 - Dementia in other diseases classified elsewhere without behavioral disturbance Status: Acute - Plan Plan: Patient remains confused disoriented though no behavioral problems, compliant medication, also have met with patient's sister and son are quite supportive and are concerned also about finding appropriate placement Justification for Continued Inpatient Stay: At this time patient with decompensated placed on a lower level of care Discharge Planning: To be determined with assistance of family Request Healthcare Surrogate/Guardian Advocate?: Yes (1) Alzheimer's disease with late onset Qualifiers: Dementia behavioral disturbance: with behavioral disturbance Qualified Code(s ): G30.1 - Alzheimer's disease with late onset; F02.81 - Dementia in other diseases classified elsewhere with behavioral disturbance
--- NOTE | 2018-06-13 11:51 | P.TTN ---
- Patient Problems Problems: 1. Discharge planning 2. Medication compliance 3. Knowledge deficit 4. Lack of coping skills - Progress Toward Goals Provider Present: Dr. Aida Echavarria Provider Input: 06/12/18: Per MD pt is reaching baseline with current meds. Pt' s mobility is limited. Nurse Input: 06/12/18: Per RN Cherie, patient compliant with medications. She continues to question placement when she will be discharged. No beh concerns at this time. Psychiatric Counselors Present: Other Psychiatric Therapist Input: 06/12/18: Pt dc is pending review from [facility] and pt's sister visiting the facility tomorrow. Adrien Espinosa, [facility] Group Spec/RT/OT/SANCHEZ Present: LAURA Fink Group Spec/RT/OT/SANCHEZ Input: 06/12/18: Pt attendance to groups is poor at this time. - Documentation Teaching Recipient: Patient
[2018-06-13] MEDS: Lisinopril 10 MG Tablet PO SCH (20:11)
[2018-06-14] MEDS: QUEtiapine 25 MG Tablet PO SCH ×2 (08:33→21:13)
[2018-06-14] MEDS: Ascorbic Acid 500 MG Tablet PO SCH (08:33)
[2018-06-14] MEDS: Venlafaxine XR 75 MG Capsule PO SCH (08:33)
[2018-06-14] MEDS: Pantoprazole Sodium 20 MG DR Tablet PO SCH (08:33)
--- NOTE | 2018-06-14 09:44 | P.PNPSY ---
Subjective Chief Complaint: Aggressive behavior Remarks: Patient is seen in day room with nurse less, chart reviewed, patient compliant medication. Patient continues diffusely confused, pleasant with me. She appears to be very happy and pleased with the visit with her son yesterday. It seems it was a first visit in a fairly long period of time and it went quite well. For now continue treatment. We will continue to work with family related to appropriate placement. Patient has had no behavioral problems. Review of Systems All other systems reviewed negative except as stated in HPI Mental Status Examination Appearance: Appropriate Consciousness: Alert Orientation: Person Motor Activity: Other (Patient sitting in [place] with a walker nearby) Speech: Hesitant (Improved), Slow (Better) Language: Adequate Fund of Knowledge: Inadequate Attention and Concentration: Easily distracted (Better) Memory: Impaired Mood: Other (Euthymic) Affect: Other (Good range and intensity) Thought Process & Associations: Disorganized Thought Content: Appropriate Hallucination Type: None Delusion Type: None Suicidal Ideation: No Suicidal Plan: No Suicidal Intention: No Homicidal Ideation: No Homicidal Plan: No Homicidal Intention: No Insight: Poor Judgment: Poor Assessment and Plan - Assessment (1) Alzheimer's disease with late onset Code(s): G30.1 - Alzheimer's disease with late onset; F02.80 - Dementia in other diseases classified elsewhere without behavioral disturbance Status: Acute - Plan Plan: Patient remains demented confused though the better mood today after visit with her son and sister yesterday. For now continue treatment. Justification for Continued Inpatient Stay: At this time patient would decompensate if not placed in an appropriate level of care Discharge Planning: To be determined continue working with family on placement issues Request Healthcare Surrogate/Guardian Advocate?: Yes (1) Alzheimer's disease with late onset Qualifiers: Dementia behavioral disturbance: with behavioral disturbance Qualified Code(s ): G30.1 - Alzheimer's disease with late onset; F02.81 - Dementia in other diseases classified elsewhere with behavioral disturbance
--- NOTE | 2018-06-14 11:24 | P.TTN ---
- Patient Problems Problems: 1. Discharge planning 2. Medication compliance 3. Knowledge deficit 4. Lack of coping skills - Progress Toward Goals Provider Present: Dr. Aida Echavarria Provider Input: 06/14/18: Per pt is at baseline and no further medication adjustment has been needed. 06/12/18: Per MD pt is reaching baseline with current meds. Pt's mobility is limited. Nurse Input: 06/14/18: Per RN Armando, pt is compliant with medication. No beh concerns at this time. 06/12/18: Per RN Cherie, patient compliant with medications. She continues to question placement when she will be discharged. No beh concerns at this time. Psychiatric Counselors Present: Other Psychiatric Therapist Input: 06/14/18: Pt is been assess today by Lenora for admission. Pt might be coming to a discharge disposition soon. 06/12/18: Pt dc is pending review from [facility] and pt's sister visiting the facility tomorrow. Adrien Espinosa, [facility] Group Spec/RT/OT/SANCHEZ Present: Alicia Renee, [employer], Ramana Mccallum, LAURA Group Spec/RT/OT/SANCHEZ Input: 06/14/18: Per Alicia, pt does attend groups, she is appropriate, follows rules, engages in projects, and is social with select peers. 06/12/18: Pt attendance to groups is poor at this time. - Documentation Teaching Recipient: Patient
[2018-06-14] MEDS: Lisinopril 10 MG Tablet PO SCH (21:12)
[2018-06-15 05:42] VITALS: BP 165/75; PULSE 83; RESP 16; TEMP 97.4; O2SAT 96
[2018-06-15] MEDS: Venlafaxine XR 75 MG Capsule PO SCH (08:21)
[2018-06-15] MEDS: QUEtiapine 25 MG Tablet PO SCH (08:22)
[2018-06-15] MEDS: Pantoprazole Sodium 20 MG DR Tablet PO SCH (08:22)
[2018-06-15] MEDS: Ascorbic Acid 500 MG Tablet PO SCH (08:23)
--- NOTE | 2018-06-15 10:44 | P.DSPSY ---
Psychiatry Discharge Summary Inpatient Psychiatric care?: Yes Advance Directives: Unknown Reason for Unknown:: Other Mental Health Advance Directive: No Health Care Proxy: No - Admission Admission Date: June 03, 2018 19:19 - Admission Diagnosis (1) Dementia with behavioral disturbance Code(s): F03.91 - Unspecified dementia with behavioral disturbance (2) Alzheimer's disease with late onset Code(s): G30.1 - Alzheimer's disease with late onset; F02.80 - Dementia in other diseases classified elsewhere without behavioral disturbance Brief History: Patient is a 78-year-old female with a history of dementia and previous admission to [facility]. Patient was here 30 days ago for aggressive behavior. She comes in today under similar circumstances. Patient is a poor historian and is confused about the circumstances of her admission. She is alert and oriented x2. Thus far, she has not been aggressive and is behaving well. Patient denies depressed mood. She denies suicidal or homicidal ideation intent or plan. Patient denies auditory or visual hallucinations. No manic symptoms noted. Past psych: Patient is a poor historian. There is a history of depression and admissions to the inpatient unit. Patient has been on Effexor in the past. She denies a history of suicide attempts. Past medical: See chart Past Famhx: She is unsure Past Social: Patient is and has a son. 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 Tobacco Use In Past 30 Days: No How Often Do You Have a Drink Containing Alcohol: Unable to Obtain Hospital Course: Patient's hospital course was uneventful, she showed compliance with medication from day of admission. Her mood and affect slowly improved with compliance with her medication. Her confusion and dementing processes remain. We did meet with patient's sister and son earlier this week. The patient and her son had a somewhat tearful reunion after not communicating well for over a year. Placement has been found for this lady today at [facility]. She is excited about going there. Thus at this time I feel patient has reached maximum benefit of this hospitalization. She denies suicidality or homicidality voices or visions. Thus patient will be discharged to her care with Rx times 1 month follow-up services through that facility - Discharge Discharge Date: 06/15/18 - Discharge Diagnosis (1) Alzheimer's disease with late onset Code(s): G30.1 - Alzheimer's disease with late onset; F02.80 - Dementia in other diseases classified elsewhere without behavioral disturbance Status: Acute (2) Dementia with behavioral disturbance Diagnosis: Principal Code(s): F03.91 - Unspecified dementia with behavioral disturbance Status: Acute Discharge Disposition: Assisted Facility - Discharge Instructions Discharge Diet: Regular Diet Activities You Can Perform: Regular- No Restrictions - Discharge Time > 30 minutes Mental Status Examination Appearance: Appropriate Consciousness: Alert Orientation: Person Motor Activity: Other (Patient sitting in [place] with a walker nearby) Speech: Hesitant (Improved), Slow (Better) Language: Adequate Fund of Knowledge: Inadequate Attention and Concentration: Easily distracted (Better) Memory: Impaired Mood: Other (Euthymic) Affect: Other (Good range and intensity) Thought Process & Associations: Disorganized Thought Content: Appropriate Hallucination Type: None Delusion Type: None Suicidal Ideation: No Suicidal Plan: No Suicidal Intention: No Homicidal Ideation: No Homicidal Plan: No Homicidal Intention: No Insight: Poor Judgment: Poor Discharge/Advance Care Plan - Results Vital Signs: Last Vital Signs Temp 97.4 F L 06/15/18 05:41 Pulse 83 06/15/18 05:41 Resp 16 06/15/18 05:41 BP 165/75 H 06/15/18 05:41 Pulse Ox 96 06/15/18 05:41 Lab Results: Laboratory Results TSH 3.230 uIU/mL (0.358-3.740) 06/02/18 20:43 Urine Culture Comments Culture not ind 06/02/18 23:00 Summary of Procedures: Urine toxicology negative blood alcohol negative Pending Results: None - Medications Number of antipsychotic medications at discharge: 1 - Discharge Care Plan Goals to Promote Your Health: * To prevent worsening of your condition and complications * To maintain your health at the optimal level Directions to Meet Your Goals: Take your medications as prescribed Follow your dietary instruction Follow activity as directed Keep your appointments as scheduled Take your immunizations and boosters as scheduled If your symptoms worsen call your PCP, if no PCP go to Urgent Care Center or Emergency Room For 24/01 questions related to your inpatient stay or results of tests pending at discharge, please contact Dr. Gt Echavarria MD at Smoking is Dangerous to Your Health. Avoid second hand smoking (1) Dementia with behavioral disturbance Qualifiers: Dementia type: Alzheimer's disease Alzheimer's disease onset: late-onset Qualified Code(s): G30.1 - Alzheimer's disease with late onset; F02.81 - Dementia in other diseases classified elsewhere with behavioral disturbance (2) Alzheimer's disease with late onset Qualifiers: Dementia behavioral disturbance: with behavioral disturbance Qualified Code(s ): G30.1 - Alzheimer's disease with late onset; F02.81 - Dementia in other diseases classified elsewhere with behavioral disturbance (1) Alzheimer's disease with late onset Qualifiers: Dementia behavioral disturbance: with behavioral disturbance Qualified Code(s ): G30.1 - Alzheimer's disease with late onset; F02.81 - Dementia in other diseases classified elsewhere with behavioral disturbance (2) Dementia with behavioral disturbance Qualifiers: Dementia type: Alzheimer's disease Alzheimer's disease onset: late-onset Qualified Code(s): G30.1 - Alzheimer's disease with late onset; F02.81 - Dementia in other diseases classified elsewhere with behavioral disturbance
== END 2018-06-15 13:40 ==
LOC: NEPD 20:24 → H250 06-03 19:19
PROVIDERS: ADMIT Psychiatry & Neurology Psychiatry; ATTEND Psychiatry & Neurology Psychiatry